=== PATIENT | male | born 1945 | race Caucasian/White ===

== ENCOUNTER 2020-02-10 10:22 | Outpatient (CLI) | payer MEDICARE ==
--- NOTE | 2020-02-10 11:09 | CT ---
CT ABDOMEN AND PELVIS WITHOUT CONTRAST: Date: 02/10/2020 INDICATION: Hematuria. History of bladder stones. There are no comparison studies. FINDINGS: Lung bases are clear. Calcified granuloma in the right lung base. Liver, spleen, and pancreas are unremarkable. Stomach and duodenum unremarkable. Bilateral hydronephrosis and bilateral hydroureters which extend to the bladder. The urinary bladder is mildly distended. There is diffuse urinary bladder wall thickening and surrounding inflammatory felipe ziness. There is significant prostatic hypertrophy which does impinge on and may involve the floor of the chong dder. There appears to be obstruction of both UVJs. There is no evidence of urinary tract calculus. Small and large bowel loops are normal caliber. Diverticulosis of the sigmoid colon. Aorta is normal caliber with atherosclerotic calcification. The osseous structures are unremarkable. The visualized vertebra maintain height and alignment. Degen erative spurring is noted. There are nonspecific periaortic lymph nodes. A lymph node to the left of the aorta just proximal to the bifurcation measures 1.0 cm. A small left iliac chain lymph node just beyond the bifurcation angeles ures 1.1 cm. There are other nonspecific iliac chain nodes. IMPRESSION: 1. Bilateral hydronephrosis and hydroureters. The bladder wall is thickened with surrounding hazy in flammatory change. Significant prostatic hypertrophy impinges on the floor of the bladder and there a ppears to be bilateral UVJ obstruction. 2. Nonspecific retroperitoneal lymph nodes noted as described. Findings relayed to Aixa at Dr. Gomes office POS: OSCAR
== END 2020-02-10 10:23 | disposition home or self-care (01) ==
LOC: BICCT 10:22
PROVIDERS: ATTEND Urology
DX: N40.0 Benign prostatic hyperplasia without lower urinary tract symptoms (principal); R31.9 Hematuria, unspecified; N28.9 Disorder of kidney and ureter, unspecified; N13.30 Unspecified hydronephrosis; N32.89 Other specified disorders of bladder; Z87.448 Personal history of other diseases of urinary system
CPT/HCPCS: 74176

== ENCOUNTER 2020-02-29 06:33 | Outpatient (CLI) | payer MEDICARE ==
[2020-02-29 11:45] LABS: Hemoglobin 8.6 g/dL (14.0-18.0); Mean Corpuscular HGB CONC 31.2 G/DL (32.0-36.0); Mean Corpuscular Hemoglobin 27.6 PG (27.0-33.0); Mean Corpuscular Volume 88.5 fl (80.0-100.0); Mean Platelet Volume 10.6 fl (7.4-10.4); Platelet Count 318 10x3/uL (130-400); RBC Distribution Width 15.7 % (11.5-14.5); Red Blood Cell (RBC) Count 3.12 10x6/uL (4.40-5.80); White Blood Cell (WBC) Count 9.2 10x3/uL (4.5-11.0)
[2020-02-29 11:55] LABS: Anion Gap 14 mmol/L (10-20); BUN (Urea Nitrogen) 12 mg/dL (8.4-25.7); Calc. Creatinine Clearance 0 mL/min (70-130); Calcium 8.3 mg/dL (7.8-10.44); Carbon Dioxide 23 mmol/L (23-31); Chloride 105 mmol/L (98-107); Estimated GFR-MDRD 79; Glucose 124 mg/dL (83-110); Potassium 4.2 mmol/L (3.5-5.1); Sodium 138 mmol/L (136-145)
[2020-02-29 12:15] LABS: PTT 27.3 sec (22.0-33.0); Prothrombin Time 10.8 sec (9.5-12.1)
[2020-02-29 17:06] LABS: SARS-CoV-2 MS2 Positive; SARS-CoV-2 N Gene Negative; SARS-CoV-2 S Gene Negative; SARS-CoV-2 by NAA Not Detected (NotDetected); SARS-CoV-2 orf1ab Negative
== END 2020-02-29 06:34 | disposition home or self-care (01) ==
LOC: LABBT 06:33
PROVIDERS: ATTEND Urology
DX: Z01.818 Encounter for other preprocedural examination (principal); N13.30 Unspecified hydronephrosis; Z20.828 Contact with and (suspected) exposure to other viral communicable diseases
CPT/HCPCS: 80048; 85027; 85610; 85730; U0003; 87635; 93005; 93010

== ENCOUNTER 2020-03-05 05:48 | Inpatient (IN) | payer MEDICARE ==
[2020-02-29 11:57] VITALS: BMI 24.3
[2020-03-05] MEDS ORDERED: Levofloxacin 500 mg/D5W 100 ml Premix Bag ONE (06:43)
[2020-03-05] MEDS ORDERED: cefTRIAXone\\ROCEPHIN 2 GM VIAL ONE (06:43)
[2020-03-05] MEDS ORDERED: Sodium Chloride 0.9% 100 ML ONE (06:43)
[2020-03-05] MEDS ORDERED: Fentanyl 100 MCG/2 ML VIAL ONE ×2 (06:49→11:30)
[2020-03-05] MEDS ORDERED: Iothalamate Meglumine 60% 50 ML VIAL FS ONE (06:51)
[2020-03-05] MEDS ORDERED: Fleet Enema 133 ML BOT PR SCH (07:00)
[2020-03-05] MEDS ORDERED: Phenylephrine 10 MG/ML VIAL ONE (09:26)
[2020-03-05] MEDS ORDERED: PHENYLEPHRINE-NS 100 MCG/ML 10 ML SYRINGE ONE ×2 (09:26→13:41)
--- NOTE | 2020-03-05 10:00 | OP ---
DATE OF PROCEDURE: 03/05/2020 PRIMARY CARE PHYSICIAN: Dr. Melendez. PREOPERATIVE DIAGNOSES: 1. A 74-year-old male with history of BPH, IPSS score of 28, incomplete emptying, PVR about 221 mL. 2. Fossa navicular stricture recently dilated from 12-Niuean to 26-Niuean. 3. History of chronic bilateral hydronephrosis. 4. Prior history of bladder stone removal, likely TURP, TURBT of bladder lesion negative for malignancy. 5. History of gross hematuria. 6. Renal insufficiency improved with indwelling Go catheter. 7. Elevated PSA of 7.97 with unremarkable digital rectal exam. POSTOPERATIVE DIAGNOSES: 1. A 74-year-old male with history of BPH, IPSS score of 28, incomplete emptying, PVR about 221 mL. 2. Fossa navicular stricture recently dilated from 12-Niuean to 26-Niuean. 3. History of chronic bilateral hydronephrosis. 4. Prior history of bladder stone removal, likely TURP, TURBT of bladder lesion negative for malignancy. 5. History of gross hematuria. 6. Renal insufficiency improved with indwelling Go catheter. 7. Elevated PSA of 7.97 with unremarkable digital rectal exam. Intraoperative findings bladder neck morphology consistent with prior TUR of likely large median lobe. Bladder without suspicious lesion. UOs unable to be identified. Oozy prostatic urethral mucosa PROCEDURES PERFORMED: Cystoscopy, 20-Niuean three-way Go catheter placement to gravity leg bag, transrectal ultrasound volume study of the prostate measuring 141 g, 12-core needle prostate biopsy. ANESTHESIA: LMA. COMPLICATIONS: None apparent. DISPOSITION: To recovery room in stable condition. INDICATIONS FOR THE PROCEDURE AND HISTORY: Mr. Marquez is a 74-year-old male with history of BPH, trilobar hyperplasia of the prostate, bladder calculi, incomplete emptying, gross hematuria, presented to transfer care. The patient was previously seen by multiple urologist, Dr. Levine in [place], which he underwent cystoscopy, bladder calculi removal, subsequent TURBT of a large inflammatory lesion negative for malignancy. He presented with intermittent gross hematuria, and incomplete emptying. He did undergo a local cystoscopy demonstrating fossa navicular stricture, cystoscopy was suboptimal due to oozing from the prostatic urethra mucosa. He presents today with exam under anesthesia. He presented with renal insufficiency of creatinine of 1.6, prior creatinine baseline is 0.9. With indwelling Go catheter, his creatinine improved with 1.3, 0.9 on recent preop labs. He presents today for prostate ultrasound, guided prostate biopsy, cystoscopy, bilateral retrograde indwelling ureteral stent placement. Risks and complications of the procedure were reviewed with him in detail including, but not limited to, bleeding, pain, infection, injury to adjacent organs, urosepsis, ureteral, renal, or kidney injury. All questions answered to his satisfaction, desired to proceed without reservation. DESCRIPTION OF PROCEDURE: After an informed consent was signed, the patient was taken to the operating room, placed in a dorsal lithotomy position with the genital area prepped and draped in the usual surgical sterile fashion. A 21-Niuean cystoscope was utilized for cystoscopy, and a 30 and 70-degree lens was utilized. Again cystoscopy demonstrated significant bilobar hyperplasia of the prostate. There was evidence of a TUR of the median lobe. Bladder neck is opened from previous TUR with no evidence of bladder neck contracture, but there is evidence at the bladder neck consistent with prior TUR. Bilobar hyperplasia of the prostate remains with no obvious resection, moiety of the lateral lobes. It appears that he probably had a median lobe treated, and a bladder calculi in the past. We stood ground for a quite some time and trying to identify his ureteral orifices. We used a 30 and 70-degree lens. Despite our cystoscopy, which we scoped him for quite some time and hoping to see some efflux of urine, I was unable to find his ureteral orifices. His anatomy was compared in situ cystoscope view with a CT demonstrating the UOs inserting at the lateral ridges of the base of the prostate. However, I was unable to find the true lumen of the ureteral orifice. Therefore, the retrograde was abandoned. A 20-Niuean three-way Go catheter with 30 mL was inserted per urethra and attached to leg bag. At this time, the patient was placed in a lateral decubitus position with all pressure points padded and protected and a digital rectal exam repeated demonstrated no nodularity. Transrectal ultrasound probe was placed and we measured the urethral length at 6.59 cm, width of 6.61 cm, and height of 6.2 cm. This demonstrated volume of 141.4 g. A 12-core needle prostate biopsy was performed, which he tolerated uneventfully. No significant bleeding from the rectum was noted. The patient transitioned to recovery room in stable condition. I will talk to the patient and family, power of flight/transport nurse regarding attempted antegrade nephrostomy tube, antegrade stent placement as UOs are likely have component of stenotic component from previous TUR. Job ID: [id number] [facility] SYSTEM[facility]
--- NOTE | 2020-03-05 10:34 | RAD ---
EXAM: XR Fluoro - Per Hour PROVIDED CLINICAL HISTORY: Large prostate gland with bilateral ureteral obstruction. COMPARISON: CT abdomen 02/28/2020 FINDINGS/IMPRESSION: 7 intraoperative fluoroscopic images of the pelvis and abdomen are submitted for interpretation. Lesli l image demonstrates a cystoscope overlying the central pelvis. No contrast is seen in the urinary bladder or either renal collecting system. Dr. Gomes noted that ureteral stents were not placed at this time secondary to inability to access the orifice of either ureter. Correlation with intraoperative findings is recommended.
[2020-03-05] MEDS ORDERED: Midazolam HCl 2 mg/2 ml Vial ONE (11:31)
[2020-03-05] MEDS ORDERED: PROPOFOL 200 MG/20 ML VIAL ONE (13:41)
[2020-03-05] MEDS ORDERED: hydrALAZINE 20 MG/ML VIAL SLOW IVP PRN ×2 (13:41)
[2020-03-05] MEDS ORDERED: Ondansetron PF 4 MG/2 ML Vial ONE (13:41)
[2020-03-05] MEDS ORDERED: Dextrose 50% Abboject 50 ML SYRINGE SLOW IVP PRN (13:41)
[2020-03-05] MEDS ORDERED: Morphine 4 MG/ML VIAL SLOW IVP PRN (13:41)
[2020-03-05] MEDS ORDERED: Morphine 2 MG/ML VIAL SLOW IVP PRN (13:41)
[2020-03-05] MEDS ORDERED: diphenhydrAMINE 50 MG/ML VIAL IVP PRN (13:41)
[2020-03-05] MEDS ORDERED: Mag-Al 1200 mg/1200 mg/30 ML UDCUP PO PRN (13:41)
[2020-03-05] MEDS ORDERED: Insulin Regular 300 UNITS/3 ML VIAL SC PRN (13:41)
[2020-03-05] MEDS ORDERED: Dextrose 5% in Water 1,000 ML IV PRN (13:41)
[2020-03-05] MEDS ORDERED: Lidocaine 1% PF 5 ML VIAL ONE (13:41)
[2020-03-05] MEDS ORDERED: ePHEDrine 50 MG/ML VIAL ONE (13:41)
[2020-03-05] MEDS ORDERED: Dexamethasone 20 MG/5 ML VIAL ONE (13:41)
[2020-03-05] MEDS ORDERED: Acetaminophen 500 MG TAB PO PRN (13:41)
[2020-03-05] MEDS ORDERED: HYDROcodone/Acetaminophen 5/325 mg Tablet PO PRN (13:41)
[2020-03-05] MEDS: Sodium Chloride 0.9% 1,000 ML IV SCH ×2 (15:38→23:38)
[2020-03-05] MEDS: HYDROcodone/Acetaminophen 5/325 mg Tablet PO PRN (19:42)
[2020-03-05] MEDS: Famotidine/PF 20 mg/2ml Vial SLOW IVP SCH (19:43)
[2020-03-05] MEDS: Docusate 100 MG CAP PO SCH (19:43)
[2020-03-05] MEDS: Carvedilol 3.125 MG TAB PO SCH (19:44)
[2020-03-05] MEDS: Cyanocobalamin (Vitamin B-12) 1,000 MCG TAB PO SCH (19:44)
[2020-03-05] MEDS: Tamsulosin HCl 0.4 MG CAP PO SCH (19:44)
[2020-03-05] MEDS: levETIRAcetam 500 MG TAB PO SCH (19:44)
--- NOTE | 2020-03-05 20:38 | HP ---
PRIMARY CARE PHYSICIAN: Dr. Dennys Melendez. HISTORY OF PRESENT ILLNESS: Mr. Marquez is a 74-year-old pleasant male with history of BPH, history of incomplete emptying, presented today for exam under anesthesia for cysto, prostate biopsy. The patient transferred care from [facility] as well as [facility]. He does have a history of very large prostate volume, bladder calculi, prior TURP likely with laser lithotripsy of bladder stone. He also underwent restaging TURBT, as he had gross hematuria, there was thought regarding possible malignancy. However, he presented with a large inflammatory lesion, however this is negative for malignancy. The patient was recently seen by Cardiology, wojciech to proceed with exam under anesthesia. He underwent local cystoscopy in my office; however, this was suboptimal due to oozing from the prostatic urethral mucosa. Therefore, he presents today for cystoscopy, possible bilateral retrograde stent placement, transrectal ultrasound-guided biopsy as he does present with PSA of 7.97 on subsequent workup. He has had repeat cytologies, negative for malignancy as well as recent. His recent CT scan staging of February 09 demonstrates bilateral hydronephrosis, diffuse bladder wall thickening, prostatic enlargement. Per my review, the ureters are prominent to the level of the prostatovesical junction at the aspect of his hyperplasia of the prostate. There is no renal or ureteral calculi of concern. He did have a pre-existing hydronephrosis dating back to his previous urologist, which appears to be chronic in nature with bilateral hydronephrosis. His renal insufficiency did improve with indwelling Go catheter as he does have a component of fossa navicular stricture, which was dilated in my office. His baseline creatinine is 0.9, it did bump up to 1.6 with catheter placement and it subsequently decreased to 1.3 and 0.9. He underwent cystoscopy today, despite multiple attempts trying to identify his ureteral orifices, it could not be identified cystoscopically. Therefore, indwelling Go catheter was replaced, which he did continue to make some urine, and underwent transrectal ultrasound-guided prostate biopsy. The volume is estimated to be 141 g. Biopsy was tolerated uneventfully. As I am unable to identify the ureteral orifices cystoscopically, I did consult Interventional Radiology for bilateral internalization of ureteral stent. Nephrostomy tube has been performed successfully by Dr. Ernandez; however, he did not feel comfortable manipulating the wire distally as there was some tortuosity and would prefer internalization to be performed over a wire with my assist in the cystoscopy suite. Therefore, he is to be admitted. Admitted until we can schedule him for bilateral nephrostogram, internalization of the ureteral stent, which we have scheduled for this Thursday. PAST MEDICAL HISTORY: Diabetes, coronary artery disease, BPH with history of gross hematuria, clot retention, bladder calculi, Parkinson disease, aortic stenosis, and history of MT. PAST SURGICAL HISTORY: Heart catheterization at 62 years of age, status post TURP, bladder calculi, laser lithotripsy at age 61 in [place], [place], rotator cuff surgery at 61 years of age, in October 2019 TURBT of friable right lateral bladder neck lesion, this is negative for malignancy. He is postop day #0 for cysto, transrectal ultrasound-guided prostate biopsy, bilateral nephrostomy tube placement today by Dr. Ernandez. FAMILY HISTORY: Positive for heart disease. SOCIAL HISTORY: Nonsmoker, has power of trust and estates attorney who is close by. HOME MEDICATIONS: Include: 1. Metformin. 2. [place]-3. 3. B12. 4. Carvedilol. 5. Losartan. 6. Isosorbide. 7. Levetiracetam. 8. Sinemet. 9. Tamsulosin. 10. Avodart. ALLERGIES: HE IS ALLERGIC TO PENICILLIN AND NIACIN. PHYSICAL EXAMINATION: VITAL SIGNS: Stable. GENERAL: The patient is in no acute distress. HEENT: Unremarkable. HEART: Regular rate. LUNGS: Clear. ABDOMEN: Soft. No rigidity. No rebound. : Go catheter to gravity. EXTREMITIES: No cyanosis, clubbing, or edema. He recently underwent transrectal ultrasound-guided prostate biopsy. NEUROLOGIC: No gross focal deficits. However, he does have a resting tremor, ambulatory with rolling walker. PSYCHIATRIC: Appears to be appropriate and intact. SKIN: No skin lesions. PERTINENT LABS AND IMAGING: White count of 9, hemoglobin 8.6, platelets 318. Coagulation profile is within normal limits. Creatinine 0.94. His COVID culture is negative. UA, which was obtained with culture demonstrates Ignacia, which is contaminated and colonized. IMPRESSION AND PLAN: 1. Mr. Marquez is a 74-year-old male with history of trilobar hyperplasia of the prostate with multiple surgical intervention of transurethral resection of the prostate, laser lithotripsy, prior history of TURBT negative for bladder tumor. 2. Elevated PSA. bx resulsts Pending 3. Chronic bilateral hydronephrosis. Cystoscopy today demonstrates changes consistent with TUR likely a large intravesical median lobe, UOs are unable to be identified cystoscopically. He underwent successful bilateral nephrostomy tube placement. I will keep the patient in-house, on Thursday we will proceed with nephrostogram, internalization of the ureteral stent with cystoscopic assistance per request of Interventional Radiology. will continue to monitor him with daily labs. continue broad-spectrum antibiotic therapy. Job ID: [id number] MTDD
[2020-03-06 05:39] LABS: #Eosinphils 0.1 thou/uL (0.0-0.7); #Lymphocytes 1.3 thou/uL (1.20-3.40); #Monocytes 0.8 thou/uL (0.11-0.59); %Basophils 0.3 % (0.0-1.0); %Eosinophils 0.6 % (0.0-10.0); %Lymphocytes 12.7 % (21.0-51.0); %Monocytes 7.8 % (0.0-10.0); %Neutrophils 78.6 % (42.0-75.0); Hemoglobin 8.3 g/dL (14.0-18.0); Mean Corpuscular Hemoglobin 26.8 pg (27.0-31.0); Mean Corpuscular Volume 86.5 fL (78.0-98.0); Mean Platelet Volume 7.9 fL (7.4-10.4); Platelet Count 256 thou/uL (130-400); RBC Distribution Width 14.3 % (11.5-14.5); White Blood Cell (WBC) Count 10.1 thou/uL (4.8-10.8)
[2020-03-06 05:58] LABS: Anion Gap 13 mmol/L (10-20); BUN (Urea Nitrogen) 8 mg/dL (8.4-25.7); Calc. Creatinine Clearance 89 mL/min (70-130); Calcium 8.3 mg/dL (7.8-10.44); Carbon Dioxide 22 mmol/L (23-31); Chloride 108 mmol/L (98-107); Estimated GFR-MDRD Greater than 90; Glucose 118 mg/dL (83-110); Potassium 4.1 mmol/L (3.5-5.1); Sodium 139 mmol/L (136-145)
--- NOTE | 2020-03-06 08:08 | PRG ---
DATE OF SERVICE: 03/06/2020 SUBJECTIVE: The patient doing okay, has some mild bilateral flank pain from recent nephrostomy tube. Otherwise, this is minimal and well tolerated. Denies fever, chills. Passing gas. OBJECTIVE: VITAL SIGNS: Stable at 97.8, 67, 16, 100, 128/77. I's and O's 1120 in and 1730. PO intake is 720. Go output 225, pink-tinged. Left nephrostomy tube 850, right nephrostomy tube , fernando, pink tinged from both tubes. GENERAL: The patient is in no acute distress. HEART: Regular rate. LUNGS: Clear. ABDOMEN: Soft. Bilateral nephrostomy tubes draining as above. EXTREMITIES: No cyanosis, clubbing, or edema. No calf tenderness. : Go catheter adequately secured, draining pink, fernando urine. PERTINENT LABORATORY DATA: White count 10, hemoglobin 8.3 which is stable from his preop, platelets 256. Creatinine this morning is 0.82, prior creatinine is 1.65 in January. IMPRESSION: 1. Mr. Marquez is a 74-year-old male with history of BPH. 2. History of incomplete emptying. 3. History of gross hematuria, intermittent. 4. Bilateral hydronephrosis, chronic. 5. History of renal insufficiency, improved. 6. Postop day #1, status post cystoscopy, bilateral nephrostomy tube placement, transrectal ultrasound prostate biopsy. RECOMMENDATIONS: continue his BPH medications. Await pathology of prostate biopsy performed for elevated PSA. He underwent bilateral nephrostomy tube. His UOs were unable to be identified cystoscopically. n.p.o. after midnight, plan is to attempt antegrade internalization of ureteral stent tomorrow. I will conference with Dr. Ernandez regarding coordination of plans. added on for tomorrow on cystoscopy suite. Continue broad-spectrum antibiotic therapy and supportive care. clinically stable and agrees with current plan of management. Anticipate likely discharge tomorrow after cystoscopy. Job ID: [id number] [facility]
[2020-03-06] MEDS: HYDROcodone/Acetaminophen 5/325 mg Tablet PO PRN ×2 (08:17→19:44)
[2020-03-06] MEDS: Losartan 25 MG TAB PO SCH (08:18)
[2020-03-06] MEDS: Docusate 100 MG CAP PO SCH ×2 (08:18→19:41)
[2020-03-06] MEDS: Carvedilol 3.125 MG TAB PO SCH ×2 (08:18→19:41)
[2020-03-06] MEDS: Famotidine/PF 20 mg/2ml Vial SLOW IVP SCH ×2 (08:18→19:40)
[2020-03-06] MEDS: metFORMIN 500 MG TAB PO SCH (08:18)
[2020-03-06] MEDS: Dutasteride 0.5 MG CAP PO SCH (08:19)
[2020-03-06] MEDS: levETIRAcetam 500 MG TAB PO SCH ×2 (08:19→19:40)
[2020-03-06] MEDS: Cyanocobalamin (Vitamin B-12) 1,000 MCG TAB PO SCH ×2 (08:19→19:41)
[2020-03-06] MEDS: Tamsulosin HCl 0.4 MG CAP PO SCH ×2 (08:19→19:41)
[2020-03-06] MEDS: Sodium Chloride 0.9% 1,000 ML IV SCH ×2 (08:32→18:03)
[2020-03-06] MEDS: CARBIDOPA PO SCH ×4 (10:38→18:03)
[2020-03-06] MEDS: LEVODOPA PO SCH ×4 (10:38→18:03)
[2020-03-06] MEDS: Rosuvastatin 10 MG TAB PO SCH (19:41)
[2020-03-07] MEDS: Sodium Chloride 0.9% 1,000 ML IV SCH ×2 (05:20→16:11)
[2020-03-07 06:03] LABS: #Eosinphils 0.4 thou/uL (0.0-0.7); #Lymphocytes 1.6 thou/uL (1.20-3.40); #Monocytes 0.8 thou/uL (0.11-0.59); #Neutrophils 4.3 thou/uL (1.40-6.50); %Basophils 0.4 % (0.0-1.0); %Lymphocytes 23.3 % (21.0-51.0); %Monocytes 10.8 % (0.0-10.0); %Neutrophils 60.7 % (42.0-75.0); Hemoglobin 7.9 g/dL (14.0-18.0); Mean Corpuscular HGB CONC 31.7 g/dL (32.0-36.0); Mean Corpuscular Hemoglobin 27.8 pg (27.0-31.0); Mean Corpuscular Volume 87.8 fL (78.0-98.0); Mean Platelet Volume 8.4 fL (7.4-10.4); Platelet Count 233 thou/uL (130-400); RBC Distribution Width 14.5 % (11.5-14.5); Red Blood Cell (RBC) Count 2.84 mill/uL (4.70-6.10); White Blood Cell (WBC) Count 7.1 thou/uL (4.8-10.8)
[2020-03-07 06:26] LABS: Anion Gap 12 mmol/L (10-20); BUN (Urea Nitrogen) 10 mg/dL (8.4-25.7); Calc. Creatinine Clearance 86 mL/min (70-130); Carbon Dioxide 23 mmol/L (23-31); Chloride 107 mmol/L (98-107); Estimated GFR-MDRD 89; Glucose 99 mg/dL (83-110); Potassium 3.7 mmol/L (3.5-5.1); Sodium 138 mmol/L (136-145)
--- NOTE | 2020-03-07 08:02 | PRG ---
DATE OF SERVICE: 03/07/2020 SUBJECTIVE: The patient without complaints, doing well. Denies chest pain, shortness of breath. No fever or chills. OBJECTIVE: VITAL SIGNS: Stable. He is afebrile, no evidence of tachycardia or vascular compromise. HEART: Regular rate. LUNGS: Clear. ABDOMEN: Soft. No rigidity. No rebound. Bilateral nephrostomy tube draining clear yellow urine. Go catheter with pink-tinged minimal output is anticipated due to bilateral nephrostomy tube. EXTREMITIES: No cyanosis, clubbing, or edema. PERTINENT LABORATORY DATA: White count 7, hemoglobin 7.9, platelet 233. BMP profile is within normal limits. Creatinine 0.85. IMPRESSION: Mr. Marquez is a 74-year-old male with: 1. History of chronic bilateral hydronephrosis. 2. History of trilobar hyperplasia of the prostate. 3. Intermittent gross hematuria. 4. History of renal insufficiency, improved, status post nephrostomy tube and indwelling Go catheter, postop day #2, status post cysto, bilateral nephrostomy tube placement, transrectal ultrasound-guided prostate biopsy. PLAN: The patient is n.p.o. as we are anticipating internalization of ureteral stents. Interventional Radiology will switch nephrostomy tube to ureteral catheters, hopefully wire down to the level of the bladder. Subsequently, we will transition to the OR for cysto, bilateral stent, dilation of ureter. Mild decrease in hemoglobin, the patient asymptomatic. I will transfuse him 1 unit of packed RBC as he has underlying coronary artery disease. Blood available from preop. Job ID: [id number]
[2020-03-07] MEDS ORDERED: ePHEDrine 50 MG/ML VIAL ONE (09:08)
[2020-03-07] MEDS ORDERED: Lidocaine 1% PF 5 ML VIAL ONE (09:08)
[2020-03-07] MEDS ORDERED: PROPOFOL 200 MG/20 ML VIAL ONE (09:08)
[2020-03-07] MEDS ORDERED: Ondansetron PF 4 MG/2 ML Vial ONE (09:08)
[2020-03-07] MEDS: LEVODOPA PO SCH ×3 (09:19→17:46)
[2020-03-07] MEDS: metFORMIN 500 MG TAB PO SCH (09:19)
[2020-03-07] MEDS: CARBIDOPA PO SCH ×3 (09:19→17:46)
[2020-03-07] MEDS: levETIRAcetam 500 MG TAB PO SCH ×2 (09:20→19:58)
[2020-03-07] MEDS: Dutasteride 0.5 MG CAP PO SCH (09:20)
[2020-03-07] MEDS: Cyanocobalamin (Vitamin B-12) 1,000 MCG TAB PO SCH ×2 (09:20→19:58)
[2020-03-07] MEDS: Tamsulosin HCl 0.4 MG CAP PO SCH ×2 (09:20→19:58)
[2020-03-07] MEDS: Famotidine/PF 20 mg/2ml Vial SLOW IVP SCH ×2 (09:20→19:58)
[2020-03-07] MEDS: Losartan 25 MG TAB PO SCH (09:20)
[2020-03-07] MEDS: Docusate 100 MG CAP PO SCH ×2 (09:20→19:58)
[2020-03-07] MEDS: Carvedilol 3.125 MG TAB PO SCH ×2 (09:21→19:58)
--- NOTE | 2020-03-07 11:27 | SPC ---
PROCEDURE: Bilateral antegrade milligrams and bilateral percutaneous nephrostomy tube placement PROVIDED CLINICAL HISTORY: Bilateral hydronephrosis due to bilateral ureteral obstruction secondary to enlarged prostate gland. COMPARISON: CT abdomen and pelvis on 02/28/2020 TECHNIQUE: The procedure including the risks and complications were explained to the patient, and informed conse nt was obtained. Patient was placed on the angiography table in the supine position. Limited sonographic evaluation of each kidney was performed. Each site was marked and then meticulously prepp ed and draped in usual sterile fashion. Skin and subcutaneous tissues overlying a dilated superior pole posterior right renal calyx were infi ltrated with buffered 1% lidocaine for local anesthesia. Utilizing concurrent real-time ultrasound guidance, a 22-gauge Chiba needle was advanced into the posterior right renal calyx. Antegrade pyelog joy was performed. There is opacification of a dilated right renal collecting system and ureter. The needle was exchanged over a guidewire for a 6 Vincentian AccuStick sheath with inner dilator and stif f inner cannula. The catheter was advanced into the proximal right ureter. The guidewire and inner cannula as well as dilator were removed. A 0.035 inch Amplatz guidewire was placed. The guidewire was advanced to the distal right ureter where there is a prominent kink and significant angulation of the distal right ureter. Given the degree of angulation tortuosity of the ureter, a ureteral stent wa s not placed at this time. The AccuStick sheath was exchanged over the guidewire for an 8 Vincentian tissue dilator followed by placement of an 8 Vincentian percutaneous nephrostomy tube. The catheter was p laced to gravity drainage and sutured in place utilizing 3-0 suture material. Attention was then turned to the left kidney and collecting system. Limited sonographic evaluation wa s performed of the left kidney. There is prominent dilatation of the renal pelvis and ureter noted on sonographic evaluation with only minimal dilatation of the renal calyces. Most dilated posterior r enal calyx was seen in the superior pole left kidney. Skin and subcutaneous tissues overlying the collecting system at intended puncture site were infiltrated with buffered 1% lidocaine for local ane sthesia. Utilizing concurrent real-time ultrasound guidance, a superior pole posterior right renal calyx was accessed with a 22-gauge Chiba needle. Contrast injection demonstrates placement in the mehreen al collecting system with evidence of hydronephrosis. An inferior pole left renal calyx was then accessed, but the guidewire would not advance suggesting possibility that the needle was in an anteri or calyx. As a result, the superior pole access site was then utilized, and the needle was exchanged over a 0.018 inch guidewire for a 6 Vincentian AccuStick sheath with inner cannula. The sheath was advanced into the proximal left ureter. Contrast confirms placement in the ureter. The catheter was exchanged over a 0.035 inch Amplatz guidewire for an 8 Vincentian tissue dilator followed placement o f a 8 Vincentian percutaneous nephrostomy tube. The guidewire was unable to be advanced into the urinary bladder due to significant tortuosity in the distal left ureter. The catheter was sutured in place utilizing 3-0 Ethilon suture material and placed to gravity drainage Dry sterile dressings were placed at catheter site. Patient tolerated the procedure well and without immediate complication. Fluoroscopy: Time-9.3 minutes Dose-36,014 mGy centimeter squared IMPRESSION: 1. Bilateral hydronephrosis. 2. Technically successful bilateral percutaneous nephrostomy tube placement. Transcribed Date/Time: 03/07/2020 11:27 AM
[2020-03-07] MEDS ORDERED: Sodium Chloride 0.9% 10 ML ONE (11:36)
[2020-03-07] MEDS ORDERED: Iothalamate Meglumine 60% 50 ML VIAL FS ONE (13:28)
[2020-03-07] MEDS ORDERED: Fentanyl 100 MCG/2 ML VIAL ONE (13:40)
[2020-03-07] MEDS ORDERED: cefTRIAXone\\ROCEPHIN 1 GM VIAL ONE (13:48)
[2020-03-07] MEDS ORDERED: Sodium Chloride 0.9% 100 ML ONE (13:49)
[2020-03-07] MEDS ORDERED: Promethazine HCl 25 MG/ML VIAL SLOW IVP PRN (14:15)
[2020-03-07] MEDS ORDERED: Ondansetron HCl/PF 4 MG/2 ML Vial IVP PRN (14:15)
[2020-03-07] MEDS ORDERED: Iopamidol 300 61% 50 ML VIAL FS ONE (14:40)
--- NOTE | 2020-03-07 16:15 | SPC ---
EXAM: SPC EXCHANGE NEPHROSTOMY CATH PROVIDED CLINICAL HISTORY: Bilateral hydronephrosis and marked enlargement of the prostate gland. Placement of nephroureteral ca theter and guidewire into the urinary bladder bilaterally was requested. COMPARISON: 03/05/2020 TECHNIQUE: The procedure including the risks and complications were explained to the patient, and informed conse nt was obtained. Patient was placed on the angiography table in the prone position. The bilateral indwelling nephrostomy tubes and surrounding areas were meticulously prepped and draped in usual ster ile fashion. The skin and subcutaneous tissues at the right nephrostomy tube entry site were infiltrated with buff ered 1% lidocaine for local anesthesia. A right nephrostogram was performed. The right nephrostomy tube was cut and exchanged over a 0.035 inch Bentson guidewire for a 5 Tamazight angled glide catheter. The glide catheter and guidewire were manipulated into the urinary bladder. Contrast injection confirms placement of the distal tip of the catheter in urinary bladder. The guidewire was replaced j ust into the urinary bladder. Catheter was sutured in place utilizing 2-0 Ethilon suture material, and a dry sterile dressing was placed. Skin and subcutaneous tissues at the entry site of the left nephrostomy tube were infiltrated with bu ffered 1% lidocaine for local anesthesia. A left nephrostogram was performed. The left nephrostomy tube was cut and exchanged over a 0.035 inch Bentson guidewire for a 4 Tamazight angled glide catheter. The catheter and guidewire were manipulated into the urinary bladder. The guidewire was removed, and contrast was injected confirming placement in the urinary bladder. Catheter was flushed, and the guidewire was replaced with tip positioned just within the urinary bladder. The catheter was sutured in place utilizing 2-0 Ethilon suture material, and a dry sterile dressing was placed. Patient tolerated the procedure well and without immediate complication. Fluoroscopy: Time-4.1 minutes Dose-22,182 mGy centimeter squared FINDINGS: Patient has bilateral indwelling percutaneous nephrostomy tubes. Placement of angiographic catheter a nd guidewire into the distal ureters and urinary bladder was requested to identify the orifices of each ureter at cystoscopy. Bilateral indwelling nephrostomy tubes were exchanged for angiographic cat heters and guidewires with the distal tip of the catheter and guidewire placed just within the urinary bladder. IMPRESSION: Technically successful replacement of bilateral nephrostomy tubes with bilateral angiographic cathete rs serving as a nephroureteral catheters, and the tip of the catheters as well as a guidewire were placed into the urinary bladder.
[2020-03-07 16:19] LABS: Hemoglobin 10.2 g/dL (14.0-18.0); Mean Corpuscular Hemoglobin 28.5 pg (27.0-31.0); Mean Corpuscular Volume 86.4 fL (78.0-98.0); Mean Platelet Volume 8.1 fL (7.4-10.4); Platelet Count 249 thou/uL (130-400); RBC Distribution Width 14.2 % (11.5-14.5); Red Blood Cell (RBC) Count 3.58 mill/uL (4.70-6.10); White Blood Cell (WBC) Count 9.3 thou/uL (4.8-10.8)
--- NOTE | 2020-03-07 16:23 | RAD ---
EXAM: XR IVP Retrograde PROVIDED CLINICAL HISTORY: Bilateral retrograde ureteral stent placement in a patient with markedly enlarged prostate gland. FINDINGS/IMPRESSION: Bilateral angiographic catheters serving as nephroureteral catheters were placed prior to this proced ure with guidewires also placed into the urinary bladder bilaterally through the catheters. Cystoscopy was performed. The guidewires extending through each nephroureteral catheter were advanced into the urinary bladder. Procedure on the right and then on the left was performed with advancement of the guidewires into the urinary bladder which were grasped at level of the urinary chong dder and removed through the urethra. Guidewires were then utilized for placement of a dual lumen catheter placement into each ureter and nephroureteral catheters were removed. Angioplasty at each ur eteral orifice into the urinary bladder was performed. Bilateral ureteral stents were then placed after bilateral retrograde urograms were performed which demonstrated bilateral hydronephrosis and se carrington angulation of the distal ureters at the level of the ureteral orifice into the urinary bladder due to markedly enlarged prostate gland. Final image demonstrates bilateral ureteral stents in place.
[2020-03-07 16:39] LABS: Anion Gap 13 mmol/L (10-20); BUN (Urea Nitrogen) 9 mg/dL (8.4-25.7); Calc. Creatinine Clearance 78 mL/min (70-130); Calcium 8.6 mg/dL (7.8-10.44); Carbon Dioxide 24 mmol/L (23-31); Chloride 106 mmol/L (98-107); Estimated GFR-MDRD 80; Glucose 110 mg/dL (83-110); Potassium 4.2 mmol/L (3.5-5.1); Sodium 139 mmol/L (136-145)
[2020-03-07] MEDS: HYDROcodone/Acetaminophen 5/325 mg Tablet PO PRN (17:45)
[2020-03-07] MEDS: Rosuvastatin 10 MG TAB PO SCH (19:58)
--- NOTE | 2020-03-07 20:45 | OP ---
DATE OF PROCEDURE: 03/07/2020 PREOPERATIVE DIAGNOSES: 1. History of bilateral hydronephrosis, chronic. 2. BPH, trilobar hyperplasia, prior history of TURP, TURBT at an outside facility, negative for bladder malignancy. 3. History of bladder calculi. POSTOPERATIVE DIAGNOSES: 1. History of bilateral hydronephrosis, chronic. 2. BPH, trilobar hyperplasia, prior history of TURP, TURBT at an outside facility, negative for bladder malignancy. 3. History of bladder calculi. PROCEDURES PERFORMED: Cystoscopy, bilateral retrograde pyelogram, internalization of bilateral nephrostomy tube, bilateral ureteral stent placement, bilateral ureteral dilatation, bilateral 6 x 30 double-J ureteral stent, a 20-Trinidadian three-way Go catheter to gravity drainage. ANESTHESIA: LMA. COMPLICATIONS: None apparent. ESTIMATED BLOOD LOSS: Minimal. IV FLUIDS: 600 mL. INTRAOPERATIVE FINDINGS: Bilateral ureteral orifices demonstrate significant J hooking, tortuous ureters bilaterally, stenotic bilateral ureteral orifices. INDICATIONS FOR PROCEDURE: Mr. Marquez is a pleasant 74-year-old male, who presented to my office, as he previously underwent multiple surgical interventions from previous urologist at an outside facility. He has a history of trilobar hyperplasia of the prostate, bladder calculi in which he underwent TURP and laser lithotripsy. Subsequently, he underwent TURBT for a large inflammatory mass in the posterior wall of the bladder. I extensively reviewed his previous records, his ureteral orifices were difficult to identify from his previous urologist, who performed a TURBT. He is known to have hydronephrosis; however, this was not addressed. He presented for cysto exam under anesthesia. I was unable to identify the ureteral orifices on cystoscopy. Therefore, he underwent bilateral nephrostomy tube placement and presents for internalization of nephrostomy tube. Risks and complications and indications for the procedure were reviewed with him in detail including, but not limited to: Bleeding, pain, infection, injury to adjacent organs, urosepsis, ureteral renal kidney injury. All questions were answered to his satisfaction, and he desired to proceed. DESCRIPTION OF PROCEDURE: After an informed consent was signed, the patient was taken to the operating room and placed in a dorsal lithotomy position. Dr. Ernandez was available, who performed bilateral nephrostomy tubes, he has internalized wires bilaterally to the level of the bladder using his previous access performed on Thursday. Upon entering the bladder, as previous, he has significant hyperplasia of the prostate. Previous TUR median lobe changes noted; however, no evidence of bladder neck contracture. We were able to see the right UO as the wire was exiting from Dr. Ernandez. The ureters were well above bladder neck; however, he has significant trigonal elevation and J hooking. The wire was then grasped with endoscopic graspers to the level of the meatus. Subsequently, I passed a 10-Trinidadian dual-lumen access sheath and performed a retrograde. This demonstrated tortuous proximal ureter due to chronic hydronephrosis, the 10-Trinidadian dual-lumen access sheath was able to be passed to the level of the proximal ureter without significant difficulty. Then, Dr. Ernandez was available and he removed his nephrostomy access and wire that was placed antegrade. With a dual-lumen access sheath in the bladder, I was able to easily pass a 0.035 Sensor wire to the level of the renal pelvis. We then dilated the ureteral orifice with a [employer] 12-Trinidadian 4-cm balloon. Subsequently, we passed a 6 x 26 double-J ureteral stent initially. However, this did migrate up, and I was able to grab the stent on a distal tail string and removed to the level of the meatus. I replaced a 6 x 30 double-J ureteral stent into the right collecting system. There was redundancy in the renal pelvis with the stent; however, the distal coil remained in the bladder. What caused the migration of the stent is that he has significant J hooking, which was the main culprit in addition to the tortuosity. The same thing was performed on the left side. The left wire antegrade placed was removed to the level of the meatus, and a 10-Trinidadian dual-lumen access sheath was able to be passed. Subsequently, we dilated the ureteral orifice with a 12-Trinidadian 4-cm balloon dilator. Subsequently, we passed a 6 x 30 double-J ureteral stent with distal tail in situ as well. The patient tolerated the procedure well, and I placed a 20- Trinidadian three-way Go catheter. CBI tubing is attached, however, clamped, and we will monitor him for degree of hematuria. There was some oozing from the prostate, however, none concerning. The patient transported to the recovery room in stable condition. I will watch the patient another night, check his H and H, if he remains stable, anticipate discharge tomorrow with indwelling Go catheter. Job ID: [id number] [facility]
[2020-03-08] MEDS: Sodium Chloride 0.9% 1,000 ML IV SCH (04:31)
[2020-03-08 05:07] LABS: Mean Corpuscular HGB CONC 31.9 g/dL (32.0-36.0); Mean Corpuscular Hemoglobin 27.9 pg (27.0-31.0); Mean Corpuscular Volume 87.3 fL (78.0-98.0); Mean Platelet Volume 8.5 fL (7.4-10.4); Platelet Count 232 thou/uL (130-400); Red Blood Cell (RBC) Count 3.24 mill/uL (4.70-6.10); White Blood Cell (WBC) Count 7.9 thou/uL (4.8-10.8)
[2020-03-08 05:23] LABS: Anion Gap 13 mmol/L (10-20); BUN (Urea Nitrogen) 10 mg/dL (8.4-25.7); Calc. Creatinine Clearance 90 mL/min (70-130); Calcium 7.8 mg/dL (7.8-10.44); Carbon Dioxide 24 mmol/L (23-31); Chloride 105 mmol/L (98-107); Estimated GFR-MDRD Greater than 90; Glucose 98 mg/dL (83-110); Potassium 3.7 mmol/L (3.5-5.1); Sodium 138 mmol/L (136-145)
--- NOTE | 2020-03-08 07:52 | DIS ---
DATE OF ADMISSION: 03/05/2020 DATE OF DISCHARGE: 03/08/2020 ADMITTING DIAGNOSES: 1. History of intermittent hematuria. 2. History of bilateral hydronephrosis. 3. History of BPH. 4. Elevated PSA. INPATIENT PROCEDURES: 1. Cystoscopy, attempted left retrograde pyelogram, ureteral stent, transrectal ultrasound-guided prostate volume study demonstrating 141 g, 12 core needle prostate biopsy, March 05. 2. March 05, bilateral percutaneous nephrostomy tube by Interventional Radiology. 3. March 07, 2020, cysto, internalization of bilateral ureteral stents, retrograde pyelogram. BRIEF HOSPITAL COURSE: Mr. Marquez is a 74-year-old male who transitioned care to in with previous urologic history which is quite extensive. He previously underwent TURP of a large intravesical median lobe with bladder calculi treated, subsequently underwent TURBT in [place] for a large inflammatory mass that was deemed negative for malignancy. He has had intermittent gross hematuria, and has incomplete emptying. He presented with these above issues and records have been reviewed. His followup with in demonstrated elevated PSA with no prior prostate biopsy performed. His hydronephrosis has been chronic for the last few months. He underwent exam under anesthesia, prostate biopsy performed uneventfully, which he tolerated without significant issues. As I was unable to find the ureteral orifices in a retrograde fashion, he underwent bilateral nephrostomy tube. Subsequently, he underwent exam under anesthesia, the access into the bladder from the kidney was obtained from Interventional Radiology. Subsequently, we were able to place bilateral ureteral stents, which demonstrated significant J hooking insertion into the bladder consistent with his very large prostate. He underwent bilateral stent, bilateral ureteral orifice dilatation. He has tolerated the above procedure without significant issues and his hemodynamic parameters have remained stable. He did have some mild decrease in his H and H, he was transfused 1 unit with appropriate increase in his H and H. On today's rounds, his urine has a light red /fernando appearance with no clots. He will be discharged with indwelling Go to gravity bag. The patient is advised to continue his home medications, aspirin will be held due to hematuria, which I expect to resolve in the next few days. Hematuria component is mild in nature. He will resume his home medications, continue BPH medications for now. Ciprofloxacin has been sent to his home pharmacy. ACTIVITY: No heavy lifting, strenuous activity. The patient is aware of catheter use, which he had previously. FOLLOWUP: followup appointment March 13 at 1 p.m. in which we will discuss options of BPH surgical intervention including TURP as his biopsy demonstrates no evidence of malignancy. DISPOSITION: Home to self-care with good family assist. Job ID: [id number] [facility]
[2020-03-08] MEDS: CARBIDOPA PO SCH (08:50)
[2020-03-08] MEDS: levETIRAcetam 500 MG TAB PO SCH (08:50)
[2020-03-08] MEDS: LEVODOPA PO SCH (08:50)
[2020-03-08] MEDS: metFORMIN 500 MG TAB PO SCH (08:50)
[2020-03-08] MEDS: Docusate 100 MG CAP PO SCH (08:51)
[2020-03-08] MEDS: Losartan 25 MG TAB PO SCH (08:51)
[2020-03-08] MEDS: Tamsulosin HCl 0.4 MG CAP PO SCH (08:51)
[2020-03-08] MEDS: Cyanocobalamin (Vitamin B-12) 1,000 MCG TAB PO SCH (08:51)
[2020-03-08] MEDS: Dutasteride 0.5 MG CAP PO SCH (08:51)
[2020-03-08] MEDS: Carvedilol 3.125 MG TAB PO SCH (08:52)
[2020-03-08] MEDS: Famotidine/PF 20 mg/2ml Vial SLOW IVP SCH (08:52)
[2020-03-08] MEDS: HYDROcodone/Acetaminophen 5/325 mg Tablet PO PRN (11:15)
[2020-03-08 11:26] VITALS: BP 133/77; TEMP 98.1
== END 2020-03-08 11:47 | disposition home or self-care (01) | DRG 661 ==
LOC: SDC 05:48 → SURG A 15:19
PROVIDERS: ADMIT Urology; ATTEND Urology
PROC: 0VB08ZX Excision of Prostate, Via Natural or Artificial Opening Endoscopic, Diagnostic (ICD-10-PCS; 2020-03-05)
PROC: 0T9430Z Drainage of Left Kidney Pelvis with Drainage Device, Percutaneous Approach (ICD-10-PCS; 2020-03-05)
PROC: 0T9330Z Drainage of Right Kidney Pelvis with Drainage Device, Percutaneous Approach (ICD-10-PCS; 2020-03-05)
PROC: 0T788DZ Dilation of Bilateral Ureters with Intraluminal Device, Via Natural or Artificial Opening Endoscopic (ICD-10-PCS; principal; 2020-03-07)
PROC: 0T9B8ZZ Drainage of Bladder, Via Natural or Artificial Opening Endoscopic (ICD-10-PCS; 2020-03-07)
PROC: 0T25X0Z Change Drainage Device in Kidney, External Approach (ICD-10-PCS; 2020-03-07)
PROC: BT141ZZ Fluoroscopy of Kidneys, Ureters and Bladder using Low Osmolar Contrast (ICD-10-PCS; 2020-03-07)
DX: N13.1 Hydronephrosis with ureteral stricture, not elsewhere classified (principal); N40.1 Benign prostatic hyperplasia with lower urinary tract symptoms; Z20.828 Contact with and (suspected) exposure to other viral communicable diseases; E11.9 Type 2 diabetes mellitus without complications; I25.10 Atherosclerotic heart disease of native coronary artery without angina pectoris; R39.14 Feeling of incomplete bladder emptying; G20 Parkinson's disease; Z79.84 Long term (current) use of oral hypoglycemic drugs; Z79.899 Other long term (current) drug therapy
CPT/HCPCS: 36415; 36416; 36430; 50430; 50431; 50432; 50436; 74420; 75984; 76000; 80048; 85025; 85027; 86850; 86900; 86901; 88305; 88341; 88342; C1729; C1887; J0696; J1100; J1956; J2250; J2370; J2405; J2704; J3010; J3490; P9016; Q9967; S0028

== ENCOUNTER 2020-03-26 06:01 | Inpatient (IN) | payer MEDICARE ==
[2020-03-21 11:07] LABS: Anion Gap 17 mmol/L (10-20); BUN (Urea Nitrogen) 12 mg/dL (8.4-25.7); Calc. Creatinine Clearance 0 mL/min (70-130); Carbon Dioxide 24 mmol/L (23-31); Chloride 106 mmol/L (98-107); Glucose 124 mg/dL (83-110); Potassium 4.5 mmol/L (3.5-5.1); Sodium 142 mmol/L (136-145)
[2020-03-21 11:08] LABS: Hemoglobin 10.2 g/dL (14.0-18.0); Mean Corpuscular HGB CONC 30.9 G/DL (32.0-36.0); Mean Corpuscular Hemoglobin 26.8 PG (27.0-33.0); Mean Corpuscular Volume 86.6 fl (80.0-100.0); Mean Platelet Volume 10.1 fl (7.4-10.4); Platelet Count 411 10x3/uL (130-400); RBC Distribution Width 14.6 % (11.5-14.5); Red Blood Cell (RBC) Count 3.81 10x6/uL (4.40-5.80); White Blood Cell (WBC) Count 9.1 10x3/uL (4.5-11.0)
[2020-03-21 11:17] LABS: INR-International Normal Ratio 1.1; PTT 27.9 sec (22.0-33.0); Prothrombin Time 11.1 sec (9.5-12.1)
[2020-03-21 18:19] LABS: SARS-CoV-2 MS2 Positive; SARS-CoV-2 N Gene Negative; SARS-CoV-2 S Gene Negative; SARS-CoV-2 by NAA Not Detected (NotDetected); SARS-CoV-2 orf1ab Negative
[2020-03-23 08:22] VITALS: BMI 24.2
[2020-03-26] MEDS ORDERED: Levofloxacin 500 mg/D5W 100 ml Premix Bag ONE (06:17)
[2020-03-26] MEDS ORDERED: Vancomycin 1 GM/200 ML BAG ONE (06:27)
[2020-03-26] MEDS ORDERED: Fentanyl 100 MCG/2 ML VIAL ONE ×2 (06:59→10:07)
[2020-03-26] MEDS ORDERED: Iothalamate Meglumine 60% 50 ML VIAL FS ONE (07:10)
--- NOTE | 2020-03-26 08:08 | RAD ---
Abdomen one view HISTORY: Preop. Ureteral obstruction. FINDINGS: Gas and stool throughout the colon. Nonspecific bowel gas pattern. Double pigtail stents overlie the course of each ureter. Proximally and of the right ureteral stent i s turned and redundant over the expected aspect of the inferior portion right renal collecting system. IMPRESSION : Bilateral ureteral stents, in good radiographic position.
[2020-03-26] MEDS ORDERED: Glycopyrrolate 0.2 MG/ML 5 ML SYRINGE ONE (09:27)
[2020-03-26] MEDS ORDERED: Rocuronium Bromide 10 MG/ML (10ML VIAL) ONE (09:27)
[2020-03-26] MEDS ORDERED: Ondansetron PF 4 MG/2 ML Vial ONE (09:27)
[2020-03-26] MEDS ORDERED: Lidocaine 1% PF 5 ML VIAL ONE (09:27)
[2020-03-26] MEDS ORDERED: PROPOFOL 200 MG/20 ML VIAL ONE (09:27)
[2020-03-26] MEDS ORDERED: Phenazopyridine HCl 97.5 MG TABLET PO PRN (09:52)
[2020-03-26] MEDS ORDERED: Dextrose 5% in Water 1,000 ML IV PRN (09:52)
[2020-03-26] MEDS ORDERED: diphenhydrAMINE 50 MG/ML VIAL IVP PRN (09:52)
[2020-03-26] MEDS ORDERED: Ondansetron PF 4 MG/2 ML Vial IVP PRN (09:52)
[2020-03-26] MEDS ORDERED: hydrALAZINE 20 MG/ML VIAL SLOW IVP PRN ×2 (09:52)
[2020-03-26] MEDS ORDERED: Dextrose 50% Abboject 50 ML SYRINGE SLOW IVP PRN (09:52)
[2020-03-26] MEDS ORDERED: Zolpidem Tartrate 5 MG TAB PO PRN (09:52)
[2020-03-26] MEDS ORDERED: HYDROcodone/Acetaminophen 5/325 mg Tablet PO PRN ×2 (09:52)
[2020-03-26] MEDS ORDERED: Insulin Regular 300 UNITS/3 ML VIAL SC PRN (09:52)
[2020-03-26] MEDS ORDERED: Mag-Al 1200 mg/1200 mg/30 ML UDCUP PO PRN (09:52)
[2020-03-26] MEDS ORDERED: cefTRIAXone\\ROCEPHIN 1 GM in Sodium Chloride 0.9% 100 ML IVPB SCH (10:00)
[2020-03-26 10:28] LABS: #Eosinphils 0.5 thou/uL (0.0-0.7); #Lymphocytes 1.3 thou/uL (1.20-3.40); #Monocytes 0.6 thou/uL (0.11-0.59); %Basophils 0.5 % (0.0-1.0); %Lymphocytes 15.4 % (21.0-51.0); %Monocytes 6.9 % (0.0-10.0); %Neutrophils 71.1 % (42.0-75.0); Hemoglobin 8.9 g/dL (14.0-18.0); Mean Corpuscular HGB CONC 32.7 g/dL (32.0-36.0); Mean Corpuscular Hemoglobin 28.4 pg (27.0-31.0); Mean Corpuscular Volume 86.9 fL (78.0-98.0); Mean Platelet Volume 7.9 fL (7.4-10.4); Platelet Count 324 thou/uL (130-400); RBC Distribution Width 13.5 % (11.5-14.5); Red Blood Cell (RBC) Count 3.14 mill/uL (4.70-6.10); White Blood Cell (WBC) Count 8.5 thou/uL (4.8-10.8)
[2020-03-26 10:47] LABS: Anion Gap 12 mmol/L (10-20); BUN (Urea Nitrogen) 12 mg/dL (8.4-25.7); Calc. Creatinine Clearance 68 mL/min (70-130); Calcium 8.5 mg/dL (7.8-10.44); Carbon Dioxide 24 mmol/L (23-31); Chloride 105 mmol/L (98-107); Glucose 156 mg/dL (83-110); Potassium 4.8 mmol/L (3.5-5.1); Sodium 136 mmol/L (136-145)
--- NOTE | 2020-03-26 11:31 | OP ---
DATE OF PROCEDURE: 03/26/2020 PREOPERATIVE DIAGNOSES: 1. A 74-year-old male with history of benign prostatic hypertrophy, prior history of transurethral resection of the prostate. 2. Incomplete emptying secondary to benign prostatic hypertrophy. 3. Elevated PSA, status post prostate biopsy negative for malignancy. 4. Bilateral hydronephrosis, status post bilateral stent. POSTOPERATIVE DIAGNOSES: 1. A 74-year-old male with history of benign prostatic hypertrophy, prior history of transurethral resection of the prostate. 2. Incomplete emptying secondary to benign prostatic hypertrophy. 3. Elevated PSA, status post prostate biopsy negative for malignancy. 4. Bilateral hydronephrosis, status post bilateral stent. PROCEDURE PERFORMED: Cystoscopy, transurethral resection of prostate/TUVP ANESTHESIA: General. COMPLICATIONS: None apparent. DISPOSITION: To recovery room in stable condition. ESTIMATED BLOOD LOSS: Less than 100 mL. IV FLUIDS: About 500 mL. DRAINS: A 22-Swazi 30 mL three-way Go catheter on CBI. INDICATIONS FOR PROCEDURE AND HISTORY: Mr. Marquez is a 74-year-old male who presented with protracted urologic history of having prior history of TURP, likely due to a large intravesical median lobe and bladder calculi. He has chronic incomplete emptying despite resection of his median lobe and presented to ok with elevated PVR, intermittent gross hematuria. Due to elevated PSA, he did undergo prostate biopsy demonstrating massively enlarged prostate with bilateral hydronephrosis. Workup for bilateral hydronephrosis demonstrated J-hooking of the ureters bilaterally, he underwent antegrade stent, bilateral stents are in place and he presents today for transurethral resection of prostate. Risks and complications of the procedures have been discussed with him in detail including, but not limited to bleeding; pain; infection; injury to adjacent organs; urosepsis; ureteral, renal or kidney injury; stricture formation; clot retention; perioperative morbidity; mortality; MA; CVA were discussed with him in detail. As he has baseline Parkinson's, he has been fully informed regarding increased risk of urgency, urge incontinence, neurogenic bladder. All questions answered to his satisfaction, desired to proceed. We discussed options of suprapubic prostatectomy which he declined. As such given his large prostate volume he is fully informed regarding possible staged TURP if needed. DESCRIPTION OF PROCEDURE: After an informed consent was signed, the patient was taken to the operating room, placed in a dorsal lithotomy position with the genital area prepped and draped in the usual surgical sterile fashion. A 21-Swazi cystoscope was utilized for cystoscopy, which again demonstrated bilobar hyperplasia, severely obstructing. There was changes at the bladder neck consistent with prior TUR of a large median lobe. UOs were identified well away from the bladder neck, as he has bilateral ureteral stents and in good position, confirmed on fluoroscopy and on cystoscopic evaluation. The stents were just recently placed March 07. At this time, we transitioned to a continuous resectoscope sheath, with a visual obturator. The bipolar loop was then utilized to perform a transurethral resection of the prostate in a classic Ene fashion. We worked on his left lateral lobe more than right. At the end of the procedure, adequate open channel noted. At the end of the procedure, I did transition to a vaporization loop, smoothing out the edges, and obtained further hemostasis. Intraoperative photos were taken, stents were left in situ as I planned to work this up with a renal scan at a later date regarding his bilateral hydronephrosis. A 22 three-way Go catheter, 30 mL was inserted per urethra after all chips were evacuated with Imperator evacuator. This passed without significant issues and 30 mL of sterile water insufflated. CBI at a moderate to low rate is initiated and pink-tinged urine is noted. will monitor him overnight. Job ID: [id number] [facility]
[2020-03-26] MEDS: Sodium Chloride 0.9% 1,000 ML IV SCH ×2 (13:45→23:15)
[2020-03-26] MEDS ORDERED: CARBIDOPA PO SCH ×2 (15:00)
[2020-03-26] MEDS ORDERED: LEVODOPA PO SCH ×2 (15:00)
[2020-03-26] MEDS: CARBIDOPA PO SCH (17:46)
[2020-03-26] MEDS: LEVODOPA PO SCH (17:46)
[2020-03-26] MEDS ORDERED: Artificial Tear Sol 15 ML BOT EA EYE PRN (19:04)
[2020-03-26] MEDS: Carvedilol 3.125 MG TAB PO SCH (20:13)
[2020-03-26] MEDS: Cyanocobalamin (Vitamin B-12) 1,000 MCG TAB PO SCH (20:13)
[2020-03-26] MEDS: Famotidine/PF 20 mg/2ml Vial SLOW IVP SCH (20:13)
[2020-03-26] MEDS: Docusate 100 MG CAP PO SCH (20:13)
[2020-03-26] MEDS: Rosuvastatin 10 MG TAB PO SCH (20:14)
[2020-03-26] MEDS: Acetaminophen 500 MG TAB PO PRN (20:14)
[2020-03-26] MEDS ORDERED: Tamsulosin HCl 0.4 MG CAP PO SCH (21:00)
[2020-03-26] MEDS ORDERED: Non-Formulary Item 1 EACH (Cyanocobalamin (Vitamin B-12) [Vitamin B-12] 500 MCG Tablet) PO SCH (21:00)
[2020-03-26] MEDS: Phenazopyridine HCl 100 MG TAB PO PRN (21:26)
[2020-03-27 05:31] LABS: #Eosinphils 0.1 thou/uL (0.0-0.7); #Lymphocytes 0.8 thou/uL (1.20-3.40); #Monocytes 1.5 thou/uL (0.11-0.59); #Neutrophils 11.9 thou/uL (1.40-6.50); %Basophils 0.2 % (0.0-1.0); %Eosinophils 0.6 % (0.0-10.0); %Lymphocytes 5.8 % (21.0-51.0); %Monocytes 10.2 % (0.0-10.0); %Neutrophils 83.3 % (42.0-75.0); Hemoglobin 8.5 g/dL (14.0-18.0); Mean Corpuscular HGB CONC 32.1 g/dL (32.0-36.0); Mean Corpuscular Hemoglobin 27.9 pg (27.0-31.0); Mean Corpuscular Volume 86.8 fL (78.0-98.0); Mean Platelet Volume 7.9 fL (7.4-10.4); Platelet Count 282 thou/uL (130-400); RBC Distribution Width 13.5 % (11.5-14.5); Red Blood Cell (RBC) Count 3.05 mill/uL (4.70-6.10); White Blood Cell (WBC) Count 14.3 thou/uL (4.8-10.8)
[2020-03-27] MEDS: Sodium Chloride 0.9% 1,000 ML IV SCH ×2 (05:43→17:21)
[2020-03-27 05:51] LABS: Anion Gap 10 mmol/L (10-20); BUN (Urea Nitrogen) 9 mg/dL (8.4-25.7); Calc. Creatinine Clearance 78 mL/min (70-130); Calcium 7.6 mg/dL (7.8-10.44); Carbon Dioxide 21 mmol/L (23-31); Chloride 108 mmol/L (98-107); Glucose 131 mg/dL (83-110); Potassium 4.2 mmol/L (3.5-5.1); Sodium 135 mmol/L (136-145)
--- NOTE | 2020-03-27 07:53 | PRG ---
DATE OF SERVICE: 03/27/2020 SUBJECTIVE: The patient denies chills, fever, or rigors. Had some eye irritation, on artificial drops, relates discomfort at the Go catheter site as an anticipated. OBJECTIVE: VITAL SIGNS: T-max of 100.9, T-current is 98, heart rate 78, respiratory rate 19, oxygen saturation 97%, and blood pressure 96/63. I's and O's 1700 of urine out. GENERAL: The patient is in no acute distress. ABDOMEN: Soft, nontender, nondistended. : CBI was held this morning, demonstrating azo-tinged, transparent red-tinged urine with no clots. I did obtain a urine culture from the Go catheter hub. EXTREMITIES: No cyanosis, clubbing, or edema. PERTINENT LABORATORY DATA: White count 14, hemoglobin of 8.5, platelet 282. Chemistry profile is within normal limits. Creatinine of 0.94. Blood sugar has been running in 130s to 120s. IMPRESSION: 1. Mr. Marquez is a 74-year-old male with history of severe benign prostatic hypertrophy. 2. History of bilateral hydronephrosis, status post stent. 3. History of incomplete emptying on postop day #1, status post TURP. Postop fever. We will obtain a repeat urine culture, change antibiotics to Rocephin. Repeat CBC, BMP in the morning. The patient is to be out of bed, walking program initiated. We will continue to monitor CBC, H and H. will monitor him off CBI this afternoon, regarding degree of hematuria. Job ID: [id number] [facility]
[2020-03-27] MEDS: metFORMIN 500 MG TAB PO SCH (08:57)
[2020-03-27] MEDS: Ferrous Sulfate 325 MG TAB PO SCH (08:57)
[2020-03-27] MEDS: Docusate 100 MG CAP PO SCH ×2 (08:57→20:49)
[2020-03-27] MEDS: Tamsulosin HCl 0.4 MG CAP PO SCH (08:57)
[2020-03-27] MEDS: Dutasteride 0.5 MG CAP PO SCH (08:57)
[2020-03-27] MEDS: cefTRIAXone\\ROCEPHIN 2 GM in Sodium Chloride 0.9% 100 ML IVPB SCH (08:57)
[2020-03-27] MEDS: Famotidine/PF 20 mg/2ml Vial SLOW IVP SCH ×2 (08:57→20:48)
[2020-03-27] MEDS: LEVODOPA PO SCH ×3 (08:58→17:21)
[2020-03-27] MEDS: CARBIDOPA PO SCH ×3 (08:58→17:21)
[2020-03-27] MEDS: Cyanocobalamin (Vitamin B-12) 1,000 MCG TAB PO SCH ×2 (08:58→20:48)
[2020-03-27] MEDS: Carvedilol 3.125 MG TAB PO SCH ×2 (09:00→20:49)
[2020-03-27] MEDS ORDERED: Non-Formulary Item 1 EACH (Ferrous Sulfate [Iron] 325 MG Tablet) PO SCH (09:00)
[2020-03-27] MEDS: Losartan 25 MG TAB PO SCH (09:00)
[2020-03-27] MEDS: Phenazopyridine HCl 100 MG TAB PO PRN (12:52)
[2020-03-27] MEDS: Rosuvastatin 10 MG TAB PO SCH (20:49)
[2020-03-27] MEDS ORDERED: levETIRAcetam 500 MG TAB PO SCH (21:00)
[2020-03-27] MEDS: Acetaminophen 500 MG TAB PO PRN (23:38)
[2020-03-28] MEDS: Sodium Chloride 0.9% 1,000 ML IV SCH ×3 (02:00→22:05)
[2020-03-28] MEDS: cefTRIAXone\\ROCEPHIN 2 GM in Sodium Chloride 0.9% 100 ML IVPB SCH (06:30)
[2020-03-28 07:31] LABS: #Eosinphils 0.2 thou/uL (0.0-0.7); #Lymphocytes 0.8 thou/uL (1.20-3.40); #Monocytes 1.2 thou/uL (0.11-0.59); #Neutrophils 8.3 thou/uL (1.40-6.50); %Basophils 0.3 % (0.0-1.0); %Eosinophils 2.2 % (0.0-10.0); %Lymphocytes 7.8 % (21.0-51.0); %Monocytes 11.1 % (0.0-10.0); %Neutrophils 78.6 % (42.0-75.0); Hemoglobin 8.7 g/dL (14.0-18.0); Mean Corpuscular HGB CONC 32.7 g/dL (32.0-36.0); Mean Corpuscular Hemoglobin 28.4 pg (27.0-31.0); Mean Corpuscular Volume 86.9 fL (78.0-98.0); Platelet Count 273 thou/uL (130-400); RBC Distribution Width 13.5 % (11.5-14.5); Red Blood Cell (RBC) Count 3.08 mill/uL (4.70-6.10); White Blood Cell (WBC) Count 10.6 thou/uL (4.8-10.8)
[2020-03-28 07:50] LABS: Anion Gap 13 mmol/L (10-20); BUN (Urea Nitrogen) 8 mg/dL (8.4-25.7); Calc. Creatinine Clearance 80 mL/min (70-130); Calcium 8.1 mg/dL (7.8-10.44); Carbon Dioxide 23 mmol/L (23-31); Chloride 108 mmol/L (98-107); Glucose 104 mg/dL (83-110); Sodium 140 mmol/L (136-145)
[2020-03-28] MEDS ORDERED: traMADol HCl 50 MG TAB PO PRN (08:32)
--- NOTE | 2020-03-28 08:32 | PRG ---
DATE OF SERVICE: 03/28/2020 SUBJECTIVE: Patient states he is feeling well, he did have recurrence of temperature 100.9 yesterday. He states that he felt fine. Denies chills, rigors. Does have discomfort at the catheter site as anticipated. CBI has been held since early yesterday morning demonstrating yellow urine with some sediment. OBJECTIVE: VITAL SIGNS: T-max of 100.9, T-current is 99.2, 72, 16, 98, 117/70. I's and O's, 5120 in, 7750 out. He is negative 2.6 L. Adequate oral intake at 2.9 L. had one bowel movement yesterday. GENERAL: The patient is in no acute distress, states that he feels well. HEART: Regular rate. LUNGS: Relatively clear. However, decreased inspiratory effort. ABDOMEN: Soft. No rigidity. No rebound. Go catheter due to clear urine, I did flush the tubing with some sediment. Bladder filled to his sensation to void. He began to leak around the catheter. Therefore, no further filling. Catheter removed with balloon intact. EXTREMITIES: No cyanosis, clubbing, edema, or calf tenderness appreciated. LABORATORY DATA: White count today has decreased to 10.6, hemoglobin stable at 8.7, platelets 273. Renal function stable. A creatinine of 0.9. Blood sugars have been running in 120s. Repeat urine culture from Go pending, per Microbiology appears to be mixed jacob for now. IMPRESSION AND PLAN: 1. Mr. Marquez is a pleasant 74-year-old male with history of severe benign prostatic hyperplasia, prior history of TUR of large median lobe, bladder stone treatment at an outside facility. 2. History of chronic bilateral hydronephrosis with severe J-hooking of the distal ureter due to trigonal elevation, status post bilateral stent. 3. History of incomplete emptying postop day #2, status post TURP. Surgery was uneventful. He has had postop fever, leukocytosis resolved this morning. Clinically, he appears well. Go catheter removed for voiding trial. He is to be aggressively out of bed, as previously advised. Importance of aggressive ambulation out of bed, to minimize risk of postoperative event discussed with him in detail. Walking program has been initiated yesterday. We will monitor him clinically, pending his review of chest x-ray today, and his clinical course and followup urine culture, possible of discharge, versus observation for another day. Job ID: [id number] [facility]
[2020-03-28] MEDS: Docusate 100 MG CAP PO SCH ×2 (08:57→22:04)
[2020-03-28] MEDS: Losartan 25 MG TAB PO SCH (08:57)
[2020-03-28] MEDS: LEVODOPA PO SCH ×3 (08:57→16:24)
[2020-03-28] MEDS: Famotidine/PF 20 mg/2ml Vial SLOW IVP SCH ×2 (08:57→22:05)
[2020-03-28] MEDS: CARBIDOPA PO SCH ×3 (08:57→16:24)
[2020-03-28] MEDS: Carvedilol 3.125 MG TAB PO SCH ×2 (08:57→22:05)
[2020-03-28] MEDS: Ferrous Sulfate 325 MG TAB PO SCH (08:57)
[2020-03-28] MEDS: levETIRAcetam 500 MG TAB PO SCH ×2 (08:58→16:24)
[2020-03-28] MEDS: metFORMIN 500 MG TAB PO SCH (08:58)
[2020-03-28] MEDS: Dutasteride 0.5 MG CAP PO SCH (08:58)
[2020-03-28] MEDS: Tamsulosin HCl 0.4 MG CAP PO SCH (08:58)
[2020-03-28] MEDS: Cyanocobalamin (Vitamin B-12) 1,000 MCG TAB PO SCH ×2 (08:58→22:05)
--- NOTE | 2020-03-28 11:10 | RAD ---
CHEST 2 VIEWS: Date: 03/28/2020 HISTORY: Postop fever. COMPARISON: None. FINDINGS: Some trace left basilar atelectasis. No pneumothorax. No effusion. No air space consolidation. IMPRESSION: Trace left basilar atelectasis. POS: [facility]
[2020-03-28] MEDS: Fluconazole In NaCl,Iso-Osm 200 MG in Premix Bag 1 BAG IVPB SCH (12:17)
[2020-03-28] MEDS: Rosuvastatin 10 MG TAB PO SCH (22:04)
[2020-03-29 06:07] LABS: #Eosinphils 0.2 thou/uL (0.0-0.7); #Lymphocytes 0.8 thou/uL (1.20-3.40); #Monocytes 1.6 thou/uL (0.11-0.59); #Neutrophils 9.2 thou/uL (1.40-6.50); %Eosinophils 1.8 % (0.0-10.0); %Lymphocytes 6.9 % (21.0-51.0); %Monocytes 13.5 % (0.0-10.0); %Neutrophils 77.7 % (42.0-75.0); Hemoglobin 8.7 g/dL (14.0-18.0); Mean Corpuscular HGB CONC 32.9 g/dL (32.0-36.0); Mean Corpuscular Volume 85.1 fL (78.0-98.0); Mean Platelet Volume 8.3 fL (7.4-10.4); Platelet Count 277 thou/uL (130-400); RBC Distribution Width 13.4 % (11.5-14.5); Red Blood Cell (RBC) Count 3.09 mill/uL (4.70-6.10); White Blood Cell (WBC) Count 11.9 thou/uL (4.8-10.8)
[2020-03-29 06:42] LABS: BUN (Urea Nitrogen) 9 mg/dL (8.4-25.7); Calc. Creatinine Clearance 67 mL/min (70-130); Calcium 8.4 mg/dL (7.8-10.44); Chloride 106 mmol/L (98-107); Glucose 124 mg/dL (83-110); Potassium 3.2 mmol/L (3.5-5.1); Sodium 138 mmol/L (136-145)
[2020-03-29 07:14] LABS: Anion Gap 16 mmol/L (10-20); Carbon Dioxide 19 mmol/L (23-31)
[2020-03-29 08:16] VITALS: TEMP 98.2
[2020-03-29] MEDS: Sodium Chloride 0.9% 1,000 ML IV SCH (08:50)
[2020-03-29] MEDS: metFORMIN 500 MG TAB PO SCH (08:52)
[2020-03-29] MEDS: Tamsulosin HCl 0.4 MG CAP PO SCH (08:53)
[2020-03-29] MEDS: Carvedilol 3.125 MG TAB PO SCH (08:53)
[2020-03-29] MEDS: Docusate 100 MG CAP PO SCH (08:53)
[2020-03-29] MEDS: Dutasteride 0.5 MG CAP PO SCH (08:53)
[2020-03-29] MEDS: Famotidine/PF 20 mg/2ml Vial SLOW IVP SCH (08:53)
[2020-03-29] MEDS: Losartan 25 MG TAB PO SCH (08:53)
[2020-03-29] MEDS: Cyanocobalamin (Vitamin B-12) 1,000 MCG TAB PO SCH (08:54)
[2020-03-29] MEDS: Ferrous Sulfate 325 MG TAB PO SCH (08:54)
[2020-03-29] MEDS: levETIRAcetam 500 MG TAB PO SCH (08:54)
[2020-03-29] MEDS: CARBIDOPA PO SCH ×3 (09:06→12:39)
[2020-03-29] MEDS: LEVODOPA PO SCH ×3 (09:06→12:39)
[2020-03-29 11:44] VITALS: BP 114/63
[2020-03-29] MEDS: Fluconazole In NaCl,Iso-Osm 200 MG in Premix Bag 1 BAG IVPB SCH (12:39)
== END 2020-03-29 15:44 | disposition home or self-care (01) | DRG 714 ==
LOC: SDC 06:01 → EDSTATUS 09:53 → SURG A 09:56 → OBSVTOIN 03-27 07:14
PROVIDERS: ADMIT Urology; ATTEND Urology
PROC: 0VB08ZZ Excision of Prostate, Via Natural or Artificial Opening Endoscopic (ICD-10-PCS; principal; 2020-03-26)
DX: N40.0 Benign prostatic hyperplasia without lower urinary tract symptoms (principal); Z20.828 Contact with and (suspected) exposure to other viral communicable diseases; Z96.0 Presence of urogenital implants; Z88.0 Allergy status to penicillin; R50.82 Postprocedural fever
CPT/HCPCS: 36415; 36416; 71046; 74018; 80048; 85025; 85027; 85610; 85730; 86850; 86900; 86901; 87086; 87635; 88305; J0696; J1450; J1956; J2405; J2704; J3010; J3370; J3490; S0028; U0003

== ENCOUNTER 2020-08-22 10:42 | Inpatient (IN) | payer MEDICARE ==
[2020-08-22 12:09] LABS: #Basophils 0.1 thou/uL (0.0-0.2); #Eosinphils 0.3 thou/uL (0.0-0.7); #Lymphocytes 1.8 thou/uL (1.20-3.40); #Monocytes 0.9 thou/uL (0.11-0.59); #Neutrophils 4.3 thou/uL (1.40-6.50); %Basophils 0.7 % (0.0-1.0); %Eosinophils 4.7 % (0.0-10.0); %Lymphocytes 24.3 % (21.0-51.0); %Monocytes 12.2 % (0.0-10.0); %Neutrophils 58.1 % (42.0-75.0); Hemoglobin 11.6 g/dL (14.0-18.0); Mean Corpuscular HGB CONC 33.8 g/dL (32.0-36.0); Mean Corpuscular Hemoglobin 29.4 pg (27.0-31.0); Platelet Count 211 thou/uL (130-400); RBC Distribution Width 13.9 % (11.5-14.5); Red Blood Cell (RBC) Count 3.94 mill/uL (4.70-6.10); White Blood Cell (WBC) Count 7.4 thou/uL (4.8-10.8)
[2020-08-22 12:18] LABS: ALT (SGPT) Less than 7 U/L (8-55); AST (SGOT) 24 U/L (5-34); Albumin 4.1 g/dL (3.4-4.8); Alkaline Phosphatase 67 U/L (40-110); Anion Gap 15 mmol/L (10-20); BUN (Urea Nitrogen) 27 mg/dL (8.4-25.7); Bilirubin, Total 0.3 mg/dL (0.2-1.2); CK (CPK) 93 U/L (30-200); Calc. Creatinine Clearance 0 mL/min (70-130); Calcium 9.6 mg/dL (7.8-10.44); Carbon Dioxide 21 mmol/L (23-31); Chloride 104 mmol/L (98-107); Globulin 4.2 g/dL (2.4-3.5); Glucose 119 mg/dL (83-110); Potassium 5.4 mmol/L (3.5-5.1); Protein, Total 8.3 g/dL (5.8-8.1); Sodium 135 mmol/L (136-145)
[2020-08-22 15:24] LABS: Troponin I Less than 0.010 ng/mL (< 0.028)
[2020-08-22] MEDS: Sodium Chloride 0.9% 1,000 ML IV SCH (15:51)
[2020-08-22 18:09] LABS: Troponin I Less than 0.010 ng/mL (< 0.028)
[2020-08-22 19:21] VITALS: BMI 25.4
[2020-08-22 20:38] LABS: RBC/HPF 21-50 HPF (0-3); Squamous Epithelial None Seen HPF (0-3); WBC/HPF Greater than 50 HPF (0-3); Yeast-Hyphae 1+ HPF (None Seen)
[2020-08-22 20:52] LABS: Bilirubin Negative (Negative); Blood, Urine 2+ (Negative); Clarity Turbid (Clear); Glucose, Urine (Dipstick) 150 mg/dL (Negative); Ketone, Urine Negative (Negative); Leukocyte 500 Leu/uL (Negative); Nitrite Negative (Negative); Protein, Urine (Dipstick) 10 mg/dL (Neg-Trace); Specific Gravity, Urine 1.007 (1.002-1.036); Urobilinogen Normal mg/dL (Less than 2)
[2020-08-22 20:56] LABS: Bacteria/HPF 2+ HPF (None Seen); Yeast-Budding 1+ HPF (None Seen)
[2020-08-22 20:57] LABS: Urine Culture Reflex Yes Yes
[2020-08-22] MEDS: CARBIDOPA PO SCH (21:28)
[2020-08-22] MEDS: LEVODOPA PO SCH (21:28)
[2020-08-22] MEDS: Cyanocobalamin (Vitamin B-12) 1,000 MCG TAB PO SCH (22:08)
[2020-08-22] MEDS: Rosuvastatin 10 MG TAB PO SCH (22:08)
[2020-08-23 01:08] LABS: SARS-CoV-2 PCR by NAA Not Detected (NotDetected)
[2020-08-23] MEDS: Sodium Chloride 0.9% 1,000 ML IV SCH ×3 (05:17→17:43)
[2020-08-23 06:24] LABS: #Basophils 0.1 thou/uL (0.0-0.2); #Eosinphils 0.4 thou/uL (0.0-0.7); #Monocytes 0.9 thou/uL (0.11-0.59); #Neutrophils 4.2 thou/uL (1.40-6.50); %Basophils 0.7 % (0.0-1.0); %Eosinophils 5.5 % (0.0-10.0); %Lymphocytes 26.1 % (21.0-51.0); %Monocytes 12.1 % (0.0-10.0); %Neutrophils 55.6 % (42.0-75.0); Hemoglobin 10.7 g/dL (14.0-18.0); Mean Corpuscular HGB CONC 34.2 g/dL (32.0-36.0); Mean Corpuscular Volume 87.7 fL (78.0-98.0); Mean Platelet Volume 8.7 fL (7.4-10.4); Platelet Count 182 thou/uL (130-400); RBC Distribution Width 13.8 % (11.5-14.5); Red Blood Cell (RBC) Count 3.57 mill/uL (4.70-6.10); White Blood Cell (WBC) Count 7.6 thou/uL (4.8-10.8)
[2020-08-23 06:43] LABS: Anion Gap 10 mmol/L (10-20); BUN (Urea Nitrogen) 20 mg/dL (8.4-25.7); Calc. Creatinine Clearance 68 mL/min (70-130); Carbon Dioxide 23 mmol/L (23-31); Chloride 111 mmol/L (98-107); Glucose 115 mg/dL (83-110); Potassium 4.4 mmol/L (3.5-5.1); Sodium 140 mmol/L (136-145)
[2020-08-23] MEDS: LEVODOPA PO SCH ×3 (08:08→21:49)
[2020-08-23] MEDS: levETIRAcetam 500 MG TAB PO SCH ×2 (08:08→17:43)
[2020-08-23] MEDS: CARBIDOPA PO SCH ×3 (08:08→21:49)
[2020-08-23] MEDS: Ferrous Sulfate 325 MG TAB PO SCH (08:08)
[2020-08-23] MEDS: Aspirin 81 mg Enteric Coated Tablet PO SCH (08:08)
[2020-08-23] MEDS: Cyanocobalamin (Vitamin B-12) 1,000 MCG TAB PO SCH ×2 (08:08→21:48)
[2020-08-23] MEDS ORDERED: Dutasteride 0.5 MG CAP PO SCH (09:45)
[2020-08-23] MEDS ORDERED: Tamsulosin HCl 0.4 MG CAP PO SCH (21:00)
[2020-08-23] MEDS ORDERED: Rosuvastatin 10 MG TAB PO SCH (21:00)
[2020-08-23] MEDS: Rosuvastatin 10 MG TAB PO SCH (21:48)
[2020-08-24] MEDS: Sodium Chloride 0.9% 1,000 ML IV SCH ×2 (02:23→03:27)
[2020-08-24 05:18] LABS: #Eosinphils 0.5 thou/uL (0.0-0.7); #Lymphocytes 2.4 thou/uL (1.20-3.40); #Neutrophils 4.8 thou/uL (1.40-6.50); %Basophils 0.6 % (0.0-1.0); %Eosinophils 6.1 % (0.0-10.0); %Lymphocytes 27.7 % (21.0-51.0); %Monocytes 11.7 % (0.0-10.0); %Neutrophils 53.9 % (42.0-75.0); Hemoglobin 9.8 g/dL (14.0-18.0); Mean Corpuscular Hemoglobin 29.5 pg (27.0-31.0); Mean Corpuscular Volume 89.4 fL (78.0-98.0); Mean Platelet Volume 8.8 fL (7.4-10.4); Platelet Count 180 thou/uL (130-400); RBC Distribution Width 13.9 % (11.5-14.5); Red Blood Cell (RBC) Count 3.33 mill/uL (4.70-6.10); White Blood Cell (WBC) Count 8.8 thou/uL (4.8-10.8)
[2020-08-24 05:40] LABS: Anion Gap 9 mmol/L (10-20); BUN (Urea Nitrogen) 13 mg/dL (8.4-25.7); Calc. Creatinine Clearance 70 mL/min (70-130); Calcium 8.6 mg/dL (7.8-10.44); Carbon Dioxide 23 mmol/L (23-31); Chloride 113 mmol/L (98-107); Glucose 122 mg/dL (83-110); Potassium 4.2 mmol/L (3.5-5.1); Sodium 141 mmol/L (136-145)
[2020-08-24] MEDS: Ferrous Sulfate 325 MG TAB PO SCH (08:23)
[2020-08-24] MEDS: Cyanocobalamin (Vitamin B-12) 1,000 MCG TAB PO SCH (08:24)
[2020-08-24] MEDS: levETIRAcetam 500 MG TAB PO SCH (08:25)
[2020-08-24] MEDS: CARBIDOPA PO SCH (08:25)
[2020-08-24] MEDS: LEVODOPA PO SCH (08:25)
[2020-08-24 08:36] VITALS: TEMP 97.5
[2020-08-24] MEDS ORDERED: Aspirin 81 mg Enteric Coated Tablet PO SCH (09:00)
[2020-08-24] MEDS: Aspirin 81 mg Enteric Coated Tablet PO SCH (09:42)
[2020-08-24 12:13] VITALS: BP 154/65
== END 2020-08-24 14:31 | disposition home or self-care (01) | DRG 312 ==
LOC: ERS 10:42 → ERHOLD 13:12 → 2SW 18:55 → OBSVTOIN 08-23 12:15
PROVIDERS: ADMIT Internal Medicine; ATTEND Internal Medicine
DX: I95.1 Orthostatic hypotension (principal); N17.9 Acute kidney failure, unspecified; Z66 Do not resuscitate; Z20.822 Contact with and (suspected) exposure to COVID-19; I12.9 Hypertensive chronic kidney disease with stage 1 through stage 4 chronic kidney disease, or unspecified chronic kidney disease; G20 Parkinson's disease; N40.0 Benign prostatic hyperplasia without lower urinary tract symptoms; G40.909 Epilepsy, unspecified, not intractable, without status epilepticus; I25.10 Atherosclerotic heart disease of native coronary artery without angina pectoris; I35.0 Nonrheumatic aortic (valve) stenosis; E86.0 Dehydration; N18.2 Chronic kidney disease, stage 2 (mild); E11.22 Type 2 diabetes mellitus with diabetic chronic kidney disease; Z88.0 Allergy status to penicillin; Z88.1 Allergy status to other antibiotic agents; Z79.84 Long term (current) use of oral hypoglycemic drugs; Z79.899 Other long term (current) drug therapy; Z85.46 Personal history of malignant neoplasm of prostate; Z79.82 Long term (current) use of aspirin
CPT/HCPCS: 36415; 70450; 71045; 80048; 80053; 81001; 82550; 84484; 85025; 87086; 87635; 93005; 95712; 95819; 95957; G0378; U0003; U0005

== ENCOUNTER 2021-11-08 08:28 | Outpatient (CLI) | payer MEDICARE ==
[2021-11-08 09:47] LABS: Bilirubin Neg (Negative); Blood, Urine 50 (Negative); Clarity Slightly Cloudy (Clear); Glucose, Urine (Dipstick) 50 mg/dL (Negative); Ketone, Urine Negative (Negative); Leukocyte 500 (Negative); Nitrite Negative (Negative); Protein, Urine (Dipstick) 15 mg/dl (Neg-Trace); Urobilinogen Normal mg/dL (Less than 2)
[2021-11-08 10:09] LABS: Bacteria/HPF 1+ HPF (None Seen); Squamous Epithelial 0-3 HPF (0-3); WBC/HPF 21-50 HPF (0-3)
[2021-11-08 11:28] LABS: Hemoglobin 12.4 g/dL (13.5-17.5); Mean Corpuscular HGB CONC 32.6 g/dL (32.0-36.0); Mean Corpuscular Hemoglobin 29.7 pg (27.0-33.0); Mean Corpuscular Volume 90.9 fl (81.2-95.1); Mean Platelet Volume 11.7 fl (7.4-10.4); Platelet Count 189 10x3/uL (150-450); RBC Distribution Width 13.1 % (11.5-14.5); Red Blood Cell (RBC) Count 4.18 10x6/uL (4.32-5.72); White Blood Cell (WBC) Count 6.6 10x3/uL (3.5-10.5)
[2021-11-08 11:32] LABS: Prothrombin Time 10.7 sec (9.5-12.1)
[2021-11-08 11:36] LABS: Anion Gap 12 mmol/L (10-20); BUN (Urea Nitrogen) 16 mg/dL (8.4-25.7); Calc. Creatinine Clearance 0 mL/min (70-130); Calcium 9.4 mg/dL (7.8-10.44); Carbon Dioxide 27 mmol/L (23-31); Chloride 106 mmol/L (98-107); Estimated GFR 82; Glucose 150 mg/dL (83-110); Potassium 3.9 mmol/L (3.5-5.1); Sodium 141 mmol/L (136-145)
== END 2021-11-08 08:29 | disposition home or self-care (01) ==
LOC: LABBT 08:28
PROVIDERS: ATTEND Urology
DX: Z01.818 Encounter for other preprocedural examination (principal); R31.0 Gross hematuria; N40.0 Benign prostatic hyperplasia without lower urinary tract symptoms; Z20.822 Contact with and (suspected) exposure to COVID-19
CPT/HCPCS: 80048; 81001; 85027; 85610; 85730; 87086; 87811; 93005; 93010

== ENCOUNTER 2021-11-13 05:45 | Day surgery (SDC) | payer MEDICARE ==
[2021-11-08 15:20] VITALS: BMI 23.8
[2021-11-13] MEDS ORDERED: Levofloxacin 500 mg/D5W 100 ml Premix Bag ONE (06:40)
[2021-11-13] MEDS ORDERED: Famotidine/PF 20 mg/2ml Vial ONE (07:11)
[2021-11-13] MEDS ORDERED: fentaNYL Citrate/PF 100 MCG/2 ML SYRINGE ONE (07:11)
[2021-11-13] MEDS ORDERED: SUGAMMADEX SODIUM 200 MG/2 ML VIAL ONE (07:12)
[2021-11-13] MEDS ORDERED: Iopamidol 0 ML ONE (07:20)
[2021-11-13] MEDS ORDERED: Phenylephrine 10 MG/ML VIAL ONE (07:30)
[2021-11-13] MEDS ORDERED: Metoclopramide HCl 10 MG/2 ML VIAL ONE (07:30)
[2021-11-13] MEDS ORDERED: Rocuronium Bromide 10 MG/ML (10ML VIAL) ONE (07:30)
[2021-11-13] MEDS ORDERED: Ondansetron PF 4 MG/2 ML Vial ONE (07:30)
[2021-11-13] MEDS ORDERED: PROPOFOL 200 MG/20 ML VIAL ONE (07:30)
[2021-11-13] MEDS ORDERED: Lidocaine 1% PF 5 ML VIAL ONE (07:30)
[2021-11-13] MEDS ORDERED: Phenazopyridine HCl 100 MG TAB ONE (08:47)
== END 2021-11-13 13:10 | disposition home or self-care (01) ==
LOC: SDC 05:45
PROVIDERS: ATTEND Urology
PROC: 0TJB8ZZ Inspection of Bladder, Via Natural or Artificial Opening Endoscopic (ICD-10-PCS; principal; 2021-11-13)
DX: R31.0 Gross hematuria (principal); N32.89 Other specified disorders of bladder; D29.1 Benign neoplasm of prostate; Z79.82 Long term (current) use of aspirin; Z79.84 Long term (current) use of oral hypoglycemic drugs; Z79.899 Other long term (current) drug therapy; Z88.0 Allergy status to penicillin; Z88.8 Allergy status to other drugs, medicaments and biological substances
CPT/HCPCS: J1956; J2370; J2405; J2704; J2765; Q9967; S0028

== ENCOUNTER 2022-05-29 13:23 | Outpatient (CLI) | payer MEDICARE | END 2022-05-29 13:24 | disposition home or self-care (01) | LOC: RAD 13:23 | PROVIDERS: ATTEND Psychiatry & Neurology Neurology | DX: R13.10 Dysphagia, unspecified (principal); R63.30 Feeding difficulties, unspecified; G20 Parkinson's disease | CPT/HCPCS: 74230 ==

== ENCOUNTER 2024-01-06 21:15 | Inpatient (IN) | payer MEDICARE ==
[2024-01-06] MEDS ORDERED: Ondansetron PF 4 MG/2 ML Vial ONE (22:05)
[2024-01-06] MEDS ORDERED: Morphine 4 MG/ML VIAL ONE (22:05)
[2024-01-06] MEDS ORDERED: Boostrix 0.5 ML (Tdap) VIAL (>/=7 yrs of age) ONE (22:10)
[2024-01-06 22:58] LABS: #Basophils 0.06 10x3/uL (0.0-0.2); %Basophils 0.4 % (0.0-1.0); %Lymphocytes 7.7 % (21.0-51.0); %Neutrophils 83.6 % (42.0-75.0); Hematocrit 36.8 % (42.0-52.0); Hemoglobin 12.6 g/dL (14.0-18.0); Mean Corpuscular HGB CONC 34.2 g/dL (32.0-36.0); Mean Corpuscular Hemoglobin 30.8 pg (27.0-31.0); Mean Platelet Volume 10.9 fL (7.4-10.4); Platelet Count 180 10x3/uL (130-400); RBC Distribution Width 13.2 % (11.5-14.5); Red Blood Cell (RBC) Count 4.09 mill/uL (4.70-6.10)
[2024-01-06 23:13] LABS: PTT 31.3 sec (22.9-36.1); Prothrombin Time 13.3 sec (12.0-14.7)
[2024-01-06 23:20] LABS: ALT (SGPT) 5 U/L (8-55); AST (SGOT) 17 U/L (5-34); Albumin 3.9 g/dL (3.4-4.8); Alkaline Phosphatase 73 U/L (40-110); Anion Gap 13 mmol/L (10-20); BUN (Urea Nitrogen) 12 mg/dL (8.4-25.7); Bilirubin, Total 0.4 mg/dL (0.2-1.2); Calc. Creatinine Clearance 0 mL/min (70-130); Calcium 9.5 mg/dL (7.8-10.44); Carbon Dioxide 24 mmol/L (23-31); Chloride 105 mmol/L (98-107); Estimated GFR 84; Globulin 3.4 g/dL (2.4-3.5); Glucose 136 mg/dL (83-110); Potassium 4.2 mmol/L (3.5-5.1); Protein, Total 7.3 g/dL (5.8-8.1); Sodium 138 mmol/L (136-145)
[2024-01-07] MEDS ORDERED: Acetaminophen 325 MG TAB PO PRN (00:04)
[2024-01-07] MEDS ORDERED: Dextrose 5% in Water 1,000 ML IV PRN (00:04)
[2024-01-07] MEDS ORDERED: Dextrose 50% Abboject 50 ML SYRINGE SLOW IVP PRN (00:04)
[2024-01-07] MEDS ORDERED: Morphine 4 MG/ML VIAL SLOW IVP PRN (00:04)
[2024-01-07] MEDS ORDERED: Promethazine HCl 25 MG/ML VIAL IM PRN (00:04)
[2024-01-07] MEDS ORDERED: Glucagon 1 MG/ML KIT IM PRN (00:04)
[2024-01-07] MEDS ORDERED: Ondansetron PF 4 MG/2 ML Vial IVP PRN (00:04)
[2024-01-07 02:42] LABS: Bilirubin Negative (Negative); Ketone, Urine Trace mg/dL (Negative); Protein, Urine (Dipstick) 100 mg/dL (Neg-Trace); Urobilinogen 0.2 mg/dL (Less than 2)
[2024-01-07] MEDS: Sodium Chloride 0.9% 1,000 ML IV SCH (02:42)
[2024-01-07 02:44] LABS: Clarity Cloudy (Clear)
[2024-01-07 02:47] LABS: Blood, Urine Large (Negative); Glucose, Urine (Dipstick) 100 mg/dL (Negative); Leukocyte Unable to Interpret (Negative); Nitrite Unable to Interpret (Negative)
[2024-01-07 02:48] LABS: Bacteria/HPF None Seen HPF (None Seen); CAUTI Indications for Culture Dysuria,urgency,freq; RBC/HPF Greater than 50 HPF (0-3); Squamous Epithelial 0-3 HPF (0-3); WBC/HPF 0-3 HPF (0-3)
[2024-01-07 02:49] LABS: Urine Culture Reflex No No
[2024-01-07 05:44] LABS: #Basophils 0.07 10x3/uL (0.0-0.2); %Basophils 0.4 % (0.0-1.0); %Eosinophils 0.7 % (0.0-10.0); %Lymphocytes 3.4 % (21.0-51.0); %Monocytes 7.3 % (0.0-10.0); %Neutrophils 87.7 % (42.0-75.0); Hematocrit 38.7 % (42.0-52.0); Hemoglobin 13.1 g/dL (14.0-18.0); Mean Corpuscular HGB CONC 33.9 g/dL (32.0-36.0); Mean Corpuscular Hemoglobin 30.7 pg (27.0-31.0); Mean Corpuscular Volume 90.6 fL (78.0-98.0); Mean Platelet Volume 10.9 fL (7.4-10.4); Platelet Count 170 10x3/uL (130-400); RBC Distribution Width 13.1 % (11.5-14.5); Red Blood Cell (RBC) Count 4.27 mill/uL (4.70-6.10)
[2024-01-07 06:11] LABS: Anion Gap 13 mmol/L (10-20); BUN (Urea Nitrogen) 12 mg/dL (8.4-25.7); Calc. Creatinine Clearance 81 mL/min (70-130); Calcium 9.2 mg/dL (7.8-10.44); Carbon Dioxide 22 mmol/L (23-31); Chloride 105 mmol/L (98-107); Estimated GFR 90; Glucose 164 mg/dL (83-110); Potassium 3.7 mmol/L (3.5-5.1); Sodium 136 mmol/L (136-145)
[2024-01-07 08:37] VITALS: BMI 24.0
[2024-01-07 09:14] LABS: Bacteria/HPF None Seen HPF (None Seen); RBC/HPF Greater than 50 HPF (0-3); Squamous Epithelial None Seen HPF (0-3)
[2024-01-07 09:20] LABS: Bilirubin Negative (Negative); Blood, Urine 2+ (Negative); Glucose, Urine (Dipstick) 300 mg/dL (Negative); Ketone, Urine 10 mg/dL (Negative); Leukocyte Negative Leu/uL (Negative); Nitrite Negative (Negative); Protein, Urine (Dipstick) 100 mg/dL (Neg-Trace); Specific Gravity, Urine 1.012 (1.002-1.036); Urobilinogen Normal mg/dL (Less than 2)
[2024-01-07 09:22] LABS: Clarity Bloody (Clear)
[2024-01-07] MEDS: Famotidine/PF 20 mg/2ml Vial SLOW IVP SCH (10:57)
[2024-01-07] MEDS: Tamsulosin HCl 0.4 MG CAP PO SCH (10:57)
[2024-01-07] MEDS: Dutasteride 0.5 MG CAP PO SCH (10:57)
[2024-01-07] MEDS: Carvedilol 3.125 MG TAB PO SCH (11:33)
[2024-01-07] MEDS ORDERED: Iopamidol 370 76% 100 ML VIAL ONE (12:02)
[2024-01-07] MEDS: RYTARY PO SCH (16:12)
[2024-01-07] MEDS ORDERED: Clindamycin/D5W 900 mg/50 ml Premix Bag ONE (16:24)
[2024-01-07] MEDS ORDERED: fentaNYL PF 100 MCG/2 ML SYRINGE ONE (16:51)
[2024-01-07] MEDS ORDERED: PROPOFOL 20 ML ONE (16:52)
[2024-01-07] MEDS ORDERED: Rocuronium Bromide 10 MG/ML (10ML VIAL) ONE (16:52)
[2024-01-07] MEDS ORDERED: Lidocaine 1% PF 5 ML VIAL ONE (17:14)
[2024-01-07] MEDS ORDERED: PHENYLEPHRINE-NS 100 MCG/ML 10 ML SYRINGE ONE ×2 (17:15→18:03)
[2024-01-07] MEDS ORDERED: SUGAMMADEX SODIUM 200 MG/2 ML VIAL ONE (18:11)
[2024-01-08] MEDS: Clindamycin/D5W 900 MG in Premix 1 BAG IVPB SCH ×2 (00:25)
[2024-01-08] MEDS: traMADol HCl 50 MG TAB PO PRN (05:08)
[2024-01-08] MEDS: FLU (Fluad Triv) TS24-25 (65UP)/MF59C/PF 45 MCG/0.5 ML Syringe IM ONE (05:09)
[2024-01-08 05:36] LABS: #Basophils 0.05 10x3/uL (0.0-0.2); #Eosinphils Less than 0.03 10x3/uL (0.0-0.7); %Basophils 0.3 % (0.0-1.0); %Eosinophils 0.1 % (0.0-10.0); %Lymphocytes 3.7 % (21.0-51.0); %Monocytes 9.5 % (0.0-10.0); %Neutrophils 85.8 % (42.0-75.0); Hematocrit 31.6 % (42.0-52.0); Hemoglobin 10.4 g/dL (14.0-18.0); Mean Corpuscular HGB CONC 32.9 g/dL (32.0-36.0); Mean Corpuscular Hemoglobin 30.7 pg (27.0-31.0); Mean Corpuscular Volume 93.2 fL (78.0-98.0); Mean Platelet Volume 11.4 fL (7.4-10.4); Platelet Count 147 10x3/uL (130-400); RBC Distribution Width 13.6 % (11.5-14.5); Red Blood Cell (RBC) Count 3.39 mill/uL (4.70-6.10)
[2024-01-08] MEDS: Carvedilol 3.125 MG TAB PO SCH (09:55)
[2024-01-08] MEDS ORDERED: Enoxaparin 40 MG (0.4 mL) SYRINGE SC SCH (21:00)
[2024-01-08] MEDS: Senokot S 8.6-50 MG TAB PO SCH (21:31)
[2024-01-09 06:55] LABS: Anisocytosis SLIGHT = 6-15 cells HPF (0-5); Macrocytosis SLIGHT = 6-15 cells HPF (0-5); Platelet Adequacy Comment Platelets Decreased
[2024-01-09 07:02] LABS: #Basophils 0.03 10x3/uL (0.0-0.2); %Basophils 0.3 % (0.0-1.0); %Eosinophils 5.9 % (0.0-10.0); %Monocytes 13.5 % (0.0-10.0); %Neutrophils 72.7 % (42.0-75.0); Hematocrit 25.8 % (42.0-52.0); Hemoglobin 8.6 g/dL (14.0-18.0); Mean Corpuscular HGB CONC 33.3 g/dL (32.0-36.0); Mean Corpuscular Hemoglobin 30.7 pg (27.0-31.0); Mean Corpuscular Volume 92.1 fL (78.0-98.0); Mean Platelet Volume 11.4 fL (7.4-10.4); Platelet Count 116 10x3/uL (130-400); RBC Distribution Width 13.8 % (11.5-14.5)
[2024-01-10 04:37] LABS: #Basophils 0.04 10x3/uL (0.0-0.2); %Basophils 0.4 % (0.0-1.0); %Eosinophils 7.4 % (0.0-10.0); %Lymphocytes 6.4 % (21.0-51.0); %Monocytes 9.7 % (0.0-10.0); %Neutrophils 75.5 % (42.0-75.0); Hematocrit 24.9 % (42.0-52.0); Hemoglobin 8.5 g/dL (14.0-18.0); Mean Corpuscular HGB CONC 34.1 g/dL (32.0-36.0); Mean Corpuscular Hemoglobin 30.6 pg (27.0-31.0); Mean Corpuscular Volume 89.6 fL (78.0-98.0); Platelet Count 126 10x3/uL (130-400); RBC Distribution Width 13.5 % (11.5-14.5); Red Blood Cell (RBC) Count 2.78 mill/uL (4.70-6.10)
[2024-01-10] MEDS: Famotidine 20 MG TAB PO SCH (20:30)
[2024-01-12] MEDS ORDERED: Enoxaparin 40 MG (0.4 mL) SYRINGE SC SCH (09:00)
[2024-01-12 12:47] VITALS: TEMP 98
[2024-01-12 15:54] VITALS: BP 146/79
== END 2024-01-12 16:56 | DRG 522 ==
LOC: ERS 21:15 → ERHOLD 01-07 00:07 → SURG A 01-07 09:27
PROVIDERS: ADMIT Surgery; ATTEND Surgery
PROC: 0SRR0JZ Replacement of Right Hip Joint, Femoral Surface with Synthetic Substitute, Open Approach (ICD-10-PCS; principal; 2024-01-07)
DX: S72.051A Unspecified fracture of head of right femur, initial encounter for closed fracture (principal); N13.30 Unspecified hydronephrosis; W18.30XA Fall on same level, unspecified, initial encounter; E78.00 Pure hypercholesterolemia, unspecified; Z88.0 Allergy status to penicillin; Z79.84 Long term (current) use of oral hypoglycemic drugs; Z79.899 Other long term (current) drug therapy; I10 Essential (primary) hypertension; G20.A1 Parkinson's disease without dyskinesia, without mention of fluctuations; Z95.1 Presence of aortocoronary bypass graft; Z98.49 Cataract extraction status, unspecified eye; Z98.890 Other specified postprocedural states; E11.9 Type 2 diabetes mellitus without complications; I25.10 Atherosclerotic heart disease of native coronary artery without angina pectoris; N40.0 Benign prostatic hyperplasia without lower urinary tract symptoms; I25.2 Old myocardial infarction
CPT/HCPCS: 36415; 71045; 72170; 74178; 80048; 80053; 81001; 85025; 85610; 85730; 86850; 86900; 86901; 87086; 88121; 90471; 90653; 90715; 93005; 96374; 96375; C1776; G0390; J2272; J2405; J2704; J3490; J7030; Q9967

== ENCOUNTER 2024-04-04 09:13 | Outpatient (CLI) | payer MEDICARE | END 2024-04-04 09:14 | disposition home or self-care (01) | LOC: BICRAD 09:13 | PROVIDERS: ATTEND Orthopaedic Surgery | DX: S72.001A Fracture of unspecified part of neck of right femur, initial encounter for closed fracture (principal); I70.90 Unspecified atherosclerosis; Z96.641 Presence of right artificial hip joint | CPT/HCPCS: 36415; 80053; 80061; 83036; 85025 ==

== ENCOUNTER 2024-04-13 10:28 | Outpatient (CLI) | payer MEDICARE ==
[2024-04-13 12:11] LABS: #Basophils 0.07 10x3/uL (0.0-0.2); %Basophils 0.8 % (0.0-1.0); %Eosinophils 7.1 % (0.0-10.0); %Lymphocytes 14.9 % (21.0-51.0); %Monocytes 9.4 % (0.0-10.0); %Neutrophils 67.6 % (42.0-75.0); Hematocrit 36.7 % (42.0-52.0); Mean Corpuscular HGB CONC 32.7 g/dL (32.0-36.0); Mean Corpuscular Hemoglobin 28.8 pg (27.0-31.0); Mean Platelet Volume 11.3 fL (7.4-10.4); Platelet Count 220 10x3/uL (130-400); Red Blood Cell (RBC) Count 4.17 mill/uL (4.70-6.10)
[2024-04-13 12:25] LABS: INR-International Normal Ratio 1.1; Prothrombin Time 13.7 sec (12.0-14.7)
[2024-04-13 12:26] LABS: PTT 32.1 sec (22.9-36.1)
[2024-04-13 12:41] LABS: Bilirubin Negative (Negative); Blood, Urine 2+ (Negative); Clarity Turbid (Clear); Glucose, Urine (Dipstick) 70 mg/dL (Negative); Ketone, Urine Negative (Negative); Leukocyte 500 Leu/uL (Negative); Nitrite Negative (Negative); Protein, Urine (Dipstick) 10 mg/dL (Neg-Trace); Specific Gravity, Urine 1.011 (1.002-1.036); Urobilinogen Normal mg/dL (Less than 2); WBC/HPF Greater than 50 HPF (0-3)
[2024-04-13 12:49] LABS: Bacteria/HPF 2+ HPF (None Seen)
[2024-04-13 13:39] LABS: Calc. Creatinine Clearance 0 mL/min (70-130); Estimated GFR 90
[2024-04-13 14:16] LABS: Potassium 3.9 mmol/L (3.5-5.1); Sodium 141 mmol/L (136-145)
[2024-04-13 14:17] LABS: Anion Gap 14 mmol/L (10-20); BUN (Urea Nitrogen) 11 mg/dL (8.4-25.7); Calcium 9.5 mg/dL (7.6-10.4); Carbon Dioxide 24 mmol/L (23-31); Chloride 107 mmol/L (98-107); Glucose 79 mg/dL (83-110)
== END 2024-04-13 10:29 | disposition home or self-care (01) ==
LOC: LABBT 10:28
PROVIDERS: ATTEND Urology
DX: Z01.818 Encounter for other preprocedural examination (principal); Z12.5 Encounter for screening for malignant neoplasm of prostate; N40.0 Benign prostatic hyperplasia without lower urinary tract symptoms; E11.9 Type 2 diabetes mellitus without complications; G20.C Parkinsonism, unspecified; I25.118 Atherosclerotic heart disease of native coronary artery with other forms of angina pectoris; N28.9 Disorder of kidney and ureter, unspecified; N13.30 Unspecified hydronephrosis; N99.115 Postprocedural fossa navicularis urethral stricture; B37.49 Other urogenital candidiasis; R35.0 Frequency of micturition; Z90.79 Acquired absence of other genital organ(s); Z87.898 Personal history of other specified conditions; Z87.448 Personal history of other diseases of urinary system
CPT/HCPCS: 80048; 81001; 85025; 85610; 85730; 87086; 93005; 93010

== ENCOUNTER 2024-04-27 05:36 | Day surgery (SDC) | payer MEDICARE ==
[2024-04-13 11:00] VITALS: BMI 22.9
[2024-04-27] MEDS ORDERED: LevoFLOXacin D5W 500 mg (100 mL) BAG ONE (06:47)
[2024-04-27] MEDS ORDERED: PROPOFOL 20 ML ONE (08:03)
[2024-04-27] MEDS ORDERED: fentaNYL PF 100 MCG/2 ML SYRINGE ONE (08:03)
[2024-04-27] MEDS ORDERED: Lidocaine 2% PF 5 ML VIAL ONE (08:03)
[2024-04-27] MEDS ORDERED: Rocuronium Bromide 10 MG/ML (10ML VIAL) ONE (08:03)
[2024-04-27] MEDS ORDERED: PHENYLEPHRINE-NS 100 MCG/ML 10 ML SYRINGE ONE (08:22)
[2024-04-27] MEDS ORDERED: Dexamethasone 4 mg/ml Vial ONE (08:25)
[2024-04-27] MEDS ORDERED: Ondansetron PF 4 MG/2 ML Vial ONE (08:25)
[2024-04-27] MEDS ORDERED: SUGAMMADEX SODIUM 200 MG/2 ML VIAL ONE (08:26)
[2024-04-27] MEDS ORDERED: Iopamidol 15 ML ONE (09:04)
[2024-04-27] MEDS ORDERED: Furosemide 20 MG (2 mL) VIAL ONE (09:04)
[2024-04-27] MEDS ORDERED: cefTRIAXone (ROCEPHIN) 2 GM VIAL ONE (09:39)
[2024-04-27] MEDS ORDERED: Sodium Chloride 0.9% 100 ML ONE (09:40)
[2024-04-27] MEDS ORDERED: Phenazopyridine HCl 100 MG TAB ONE (10:16)
[2024-04-27] MEDS ORDERED: Oxybutynin 5 MG TAB ONE (10:16)
== END 2024-04-27 13:20 | disposition home or self-care (01) ==
LOC: SDC 05:36
PROVIDERS: ATTEND Urology
PROC: 0TBB8ZX Excision of Bladder, Via Natural or Artificial Opening Endoscopic, Diagnostic (ICD-10-PCS; principal; 2024-04-27)
PROC: 0T7B8ZZ Dilation of Bladder, Via Natural or Artificial Opening Endoscopic (ICD-10-PCS; 2024-04-27)
DX: N30.10 Interstitial cystitis (chronic) without hematuria (principal); N13.30 Unspecified hydronephrosis; N99.115 Postprocedural fossa navicularis urethral stricture; N28.9 Disorder of kidney and ureter, unspecified; N40.1 Benign prostatic hyperplasia with lower urinary tract symptoms; R39.14 Feeling of incomplete bladder emptying; R35.0 Frequency of micturition; B37.49 Other urogenital candidiasis; I25.10 Atherosclerotic heart disease of native coronary artery without angina pectoris; E11.9 Type 2 diabetes mellitus without complications; G20.A1 Parkinson's disease without dyskinesia, without mention of fluctuations; G40.909 Epilepsy, unspecified, not intractable, without status epilepticus; Z96.641 Presence of right artificial hip joint; Z98.41 Cataract extraction status, right eye; Z98.42 Cataract extraction status, left eye; Z90.79 Acquired absence of other genital organ(s); Z88.8 Allergy status to other drugs, medicaments and biological substances; Z88.0 Allergy status to penicillin; Z79.82 Long term (current) use of aspirin; Z79.84 Long term (current) use of oral hypoglycemic drugs; Z79.899 Other long term (current) drug therapy
CPT/HCPCS: 52204; 52260; 74420; 86850; 86900; 86901; J0696; J1100; J1940; J1956; J2405; J2704; Q9967; 36415; 88305; 88342; A4333